=== PATIENT | male | born 1965 | race Caucasian/White ===

== ENCOUNTER 2017-05-07 11:18 | Observation (INO) | payer BC ==
[~2017-05-07] VITALS: Ht 172.7 cm; Wt 82.4 kg
[2017-05-07] VITALS (8 sets, daily range): BP systolic 133–148; BP diastolic 78–91; PULSE 56–71; TEMP 36.5–37.2; O2SAT 95–99; Ht 172.7 cm; Wt 82.4 kg
[~2017-05-07 11:18] MED LIST: CYAN500T PO
[2017-05-07] MEDS ORDERED: NITROGLYCERIN OINT 2% 1GM PACKET EXT STA (11:34)
--- NOTE | 2017-05-07 11:36 | EMERGENCY ROOM VISIT NOTE ---
History Report prepared by Bob: Mariia Cao Under the Supervision of: Dr. Trenton Hill M.D. First contact with patient: 11:26 Chief Complaint: CARDIAC ASSESSMENT Stated Complaint: CHEST PRESSURE, BURNING History of Present Illness The patient is a 52 year old male who presents to the Emergency Room with complaints of persistent chest pain that began yesterday. No pain radiation, no nausea, no sweating. He currently rates his discomfort as a 2/10 in severity. The patient states that in 2008 he had a cardiac stent placed. He states that he had the stent placed due to chest pressure and shortness of breath. The patient states that yesterday he began becoming short of breath and reported burning in his chest. He states that he has nitroglycerin at home , but did not use it. The patient states that his last stress test was two years ago. He states that he takes 81 mg of aspirin daily. The patient reports a history of GERD. Source of History: patient Onset: yesterday Position: chest Symptom Intensity: 2/10 Quality: burning Timing: other (persistent) Associated Symptoms: + SOB Review of Systems See HPI for pertinent positives & negatives. A total of 10 systems reviewed and were otherwise negative. Past Medical & Surgical Medical Problems: (1) Bicuspid aortic valve (2) Coronary artery disease (3) Depression (4) Gastroesophageal reflux disease (5) Migraine with aura Surgical Problems: (1) H/O heart artery stent (2) H/O vasectomy (3) S/P coronary artery stent placement (4) S/P inguinal hernia repair (5) S/P tonsillectomy Family History Cardiac arrhythmia Social History Smoking Status: Former Smoker Marital Status: Housing Status: lives with significant other Occupation Status: employed Current/Historical Medications Scheduled Aspirin (Aspirin Ec), 81 MG PO HS Clopidogrel (Plavix), 75 MG PO HS Multivitamin (Multivitamin), 1 TAB PO DAILY [place]-3 Fatty Acids (Fish Oil), 2 CAP PO QPM Pantoprazole (Protonix), 40 MG PO HS Sertraline (Zoloft), 50 MG PO HS Simvastatin (Zocor), 40 MG PO HS Scheduled PRN Nitroglycerin (Nitrostat), 0.4 MG UT UD PRN for Chest Pain Allergies Coded Allergies: Penicillins (Verified Allergy, Intermediate, RASH, 05/07/17) AN Physical Exam Vital Signs Date Time Temp Pulse Resp B/P (MAP) Pulse Ox O2 Delivery O2 Flow Rate FiO2 05/07/17 12:25 64 20 154/99 99 Room Air 05/07/17 12:03 63 05/07/17 11:30 98 Room Air 05/07/17 11:30 98 Room Air 05/07/17 11:21 37.0 79 18 165/103 98 Room Air Physical Exam GENERAL: Patient is in no acute distress. HEENT: No acute trauma, normocephalic atraumatic, mucous membranes moist, no nasal congestion, no scleral icterus. NECK: No stridor, no adenopathy, no meningismus, trachea is midline. LUNGS: Clear to auscultation bilaterally, no wheeze, no rhonchi, breath sounds equal. HEART: Subtle systolic murmur, regular rate and rhythm. ABDOMEN: Soft, nontender, bowel sounds positive, no hernias, no peritonitis. EXTREMITIES: No cyanosis or edema, full range of motion of all the joints without pain or difficulty, no signs for acute trauma. NEUROLOGIC: Oriented x 3, no acute motor or sensory deficits, no focal weakness. SKIN: No rash, no jaundice, no diaphoresis. Medical Decision & Procedures ER Provider Diagnostic Interpretation: X-ray results as stated below per interpretation by me and the radiologist: SINGLE VIEW CHEST CLINICAL HISTORY: Atypical chest pain. FINDINGS: An AP, portable, upright chest radiograph is compared to study dated 05/05/2013. The examination is degraded by portable technique and patient rotation. The heart is top normal for projection. There is mild atherosclerotic calcification of the thoracic aorta. The pulmonary vasculature is noncongested. The lungs and pleural spaces are clear. No pneumothorax is seen. The bony thorax is grossly intact. IMPRESSION: No acute cardiopulmonary abnormality. Electronically signed by: Trenton Sierra M.D. 05/07/2017 11:51 AM Dictated Date/Time: 05/07/2017 11:51 AM Laboratory Results 05/07/17 11:35 05/07/17 11:35 Test 05/07/17 11:35 Red Blood Count 4.35 M/uL (4.7-6.1) Mean Corpuscular Volume 91.0 fL (80-100) Mean Corpuscular Hemoglobin 31.3 pg (25-34) Mean Corpuscular Hemoglobin Concent 34.3 g/dl (32-36) RDW Standard Deviation 44.0 fL (36.4-46.3) RDW Coefficient of Variation 13.2 % (11.5-14.5) Mean Platelet Volume 9.7 fL (7.4-10.4) Prothrombin Time 10.0 SECONDS (9.0-12.0) Prothromb Time International Ratio 0.9 (0.9-1.1) Activated Partial Thromboplast Time 26.6 SECONDS (21.0-31.0) Partial Thromboplastin Ratio 1.0 Anion Gap 8.0 mmol/L (3-11) Est Creatinine Clear Calc Drug Dose 101.6 ml/min Estimated GFR () 112.9 Estimated GFR (Non- 97.4 BUN/Creatinine Ratio 12.9 (10-20) Calcium Level 8.9 mg/dl (8.5-10.1) Total Bilirubin 0.4 mg/dl (0.2-1) Aspartate Amino Transf (AST/SGOT) 13 U/L (15-37) Alanine Aminotransferase (ALT/SGPT) 25 U/L (12-78) Alkaline Phosphatase 63 U/L (45-117) Total Creatine Kinase 98 U/L (39-308) Creatine Kinase MB 0.6 ng/ml (0.5-3.6) Creatine Kinase MB Ratio 0.6 (0-3.0) Troponin I < 0.015 ng/ml (0-0.045) Total Protein 7.4 gm/dl (6.4-8.2) Albumin 4.2 gm/dl (3.4-5.0) Globulin 3.2 gm/dl (2.5-4.0) Albumin/Globulin Ratio 1.3 (0.9-2) Lipase 277 U/L (73-393) Laboratory results reviewed by me. Medications Administered Medications (Trade) Dose Ordered Sig/Diaz Route Start Time Stop Time Status Last Admin Dose Admin Nitroglycerin (Nitroglycerin 2% Oint) 1 inch NOW STAT EXT 05/07/17 11:34 05/07/17 13:20 DC 05/07/17 11:51 1 INCH ECG Indication: chest pain Rate (beats per minute): 71 Rhythm: normal sinus Findings: no acute ischemic change, no ectopy ED Course 1127: The patient was evaluated in room B3B. A complete history and physical exam was performed. 1134: Ordered Nitroglycerin 1 inch EXT. 1223: I reevaluated the patient and he has had complete resolution of his symptoms with the nitroglycerin. I discussed the exam findings with him and I discussed the treatment plan. He verbalized complete understanding and agreement. Cardiology will be consulted. 1225: I discussed the patients case with Jeff Allen. He states that the patient should be evaluated for further treatment. 1235: I discussed the patient's case with Dave Beltran PA-C. She is going to evaluate the patient for further treatment. 1237: I reevaluated the patient and he is resting, I updated the patient the treatment plan. He verbalized complete understanding and agreement. He will be evaluated for further treatment. Medical Decision The patient is a 52 year old male who presents to the ED with complaints of chest pain. Differential diagnoses considered include MS, CHF, pneumonia, reflux, angina, anemia. There is no leukocytosis or concerning anemia. No significant electrolyte abnormality, kidney failure, hepatitis or pancreatitis. There is no coagulopathy. EKG shows a normal sinus rhythm, no acute ischemia. Cardiac enzyme testing times one is not consistent with acute cardiac injury. Chest x- ray shows no mediastinal widening, pneumonia or pneumothorax. The patient presents with precordial chest pain. He has a cardiac history with previous coronary stenting. He received Nitropaste while in the ER, he is now pain-free. The patient does take daily aspirin so no additional aspirin was given. Given his presentation, further cardiac workup is warranted. I am concerned he may be suffering from angina. I spoke with cardiology, I talked with the patient and case management. The on-call hospitalist was consulted. Medication Reconcilliation Current Medication List: was personally reviewed by me Consults Time Called: 1223 Consulting Physician: Dave Allen Cardiology Returned Call: 1225 I discussed the patients case with Jeff Allen. He states that the patient should be evaluated for further treatment. Additional Consults: Time Called: 1229 Consulted Physician: Dave Beltran PA-C Returned Call: 1230 Additional Comments: I discussed the patient's case with Dave Beltran PA-C. She is going to evaluate the patient for further treatment. Impression Primary Impression: Precordial chest pain Scribe Attestation The scribe's documentation has been prepared under my direction and personally reviewed by me in its entirety. I confirm that the note above accurately reflects all work, treatment, procedures, and medical decision making performed by me. Departure Information Dispostion Being Evaluated By Hospitalist Referrals Shant Ojeda M.D. (PCP)
[2017-05-07 11:53] LABS: HEMATOCRIT 39.6 % (42-52); MEAN CORPUSCULAR HEMOGLOBIN 31.3 pg (25-34); MEAN CORPUSCULAR HGB CONC 34.3 g/dl (32-36); MEAN PLATELET VOLUME 9.7 fL (7.4-10.4); PLATELET COUNT 241 K/uL (130-400); RED BLOOD COUNT 4.35 M/uL (4.7-6.1); WHITE BLOOD COUNT 5.26 K/uL (4.8-10.8)
--- NOTE | 2017-05-07 11:53 | DIAGNOSTIC IMAGING REPORT ---
SINGLE VIEW CHEST CLINICAL HISTORY: Atypical chest pain. FINDINGS: An AP, portable, upright chest radiograph is compared to study dated 05/05/2013. The examination is degraded by portable technique and patient rotation. The heart is top normal for projection. There is mild atherosclerotic calcification of the thoracic aorta. The pulmonary vasculature is noncongested. The lungs and pleural spaces are clear. No pneumothorax is seen. The bony thorax is grossly intact. IMPRESSION: No acute cardiopulmonary abnormality. Electronically signed by: Trenton Sierra M.D. 05/07/2017 11:51 AM Dictated Date/Time: 05/07/2017 11:51 AM
[2017-05-07 11:58] LABS: INR 0.9 (0.9-1.1)
[2017-05-07 12:10] LABS: ALT/SGPT 25 U/L (12-78); AST/SGOT 13 U/L (15-37); BLOOD UREA NITROGEN 11 mg/dl (7-18); BUN/CREATININE RATIO 12.9 (10-20); CALCIUM 8.9 mg/dl (8.5-10.1); CARBON DIOXIDE 26 mmol/L (21-32); CHLORIDE 109 mmol/L (98-107); CREATININE 0.88 mg/dl (0.60-1.40); GLUCOSE 97 mg/dl (70-99); SODIUM 143 mmol/L (136-145)
[2017-05-07 12:15] LABS: ALB/GLOB RATIO 1.3 (0.9-2); ALKALINE PHOSPHATASE 63 U/L (45-117); CKMB/CK RATIO 0.6 (0-3.0)
[2017-05-07] MEDS ORDERED: ASPIRIN 81 MG CHEW PO STA (12:38)
[2017-05-07] MEDS ORDERED: ASPIRIN 324 MG CHEW ONE (12:44)
[2017-05-07] MEDS ORDERED: NITROGLYCERIN 0.4 MG SL PER TAB CHARGE SL PRN (13:00)
[2017-05-07] MEDS ORDERED: ACETAMINOPHEN 325 MG TAB PO PRN (13:00)
[2017-05-07] MEDS ORDERED: ONDANSETRON INJ 2 MG/ML 2 ML VIAL IV PRN (13:00)
[2017-05-07] MEDS ORDERED: NITROGLYCERIN 0.4 MG SL PER TAB CHARGE UT PRN (13:30)
[2017-05-07] MEDS ORDERED: ALUMINUM/MAGNESIUM/SIMETH (MAALOX MAX) 30 ML UDC PO PRN (13:30)
--- NOTE | 2017-05-07 14:05 | History and Physical ---
History & Physical Date & Time of Service: May 07, 2017 at 13:27 Chief Complaint: Chest Pressure, Burning Primary Care Physician: Shant Ojeda M.D. History of Present Illness Source: patient, clinic records, hospital records This is a 52 y/o male with PMH of CAD s/p VICTOR HUGO to LAD in 04/2009, congenital bicuspid aortic valve, and other problems listed below who presents to the ED with chest pain. Patient states yesterday after returning from camp, while unloading small pieces of wood from his truck, developed SOB, substernal burning chest pain, burning and globus sensation in throat, mild nausea. Patient laid down and symptoms resolved after 30 minutes. This morning he awoke at 6:30 am with the same symptoms which persisted for several hours and resolved when nitro paste was placed in ER (approximately 11:50 am). He did not take SL nitro or try any antacids. He is currently chest pain free. Denies worsening of chest pain with exertion, position, or eating. He reports chronic intermittent LAMA when when cutting grass or walking down stairs. He does not regularly exercise. He reports longstanding acid reflux for which he takes pantoprazole. Weight is decreased 4-5 lb in past 1 year. Pt denies diaphoresis, dizziness, syncope, palpitations, cough, dyspnea at rest, dysphagia, odynophagia , abdominal pain, vomiting, diarrhea, hematochezia, melena, dysuria, frequency, urgency, LE edema, calf pain. Repeat cath 06/11/2009 showed widely patent LAD stent, otherwise no significant disease. Stress echo 04/2014 was negative for inducible ischemia. Past Medical/Surgical History Medical Problems: (1) Bicuspid aortic valve Status: Chronic (2) Coronary artery disease Status: Chronic (3) Depression Status: Chronic (4) Gastroesophageal reflux disease Status: Chronic (5) Migraine with aura Status: Chronic Surgical Problems: (1) H/O heart artery stent Status: Resolved (2) H/O vasectomy Status: Chronic (3) S/P coronary artery stent placement Status: Chronic (4) S/P inguinal hernia repair Status: Chronic (5) S/P tonsillectomy Status: Chronic Family History Cardiac arrhythmia FATHER Social History Smoking Status: Never Smoker Alcohol Use: socially (drinks beer on the weekends, up to a 6-pack over several hours) Marital Status: Housing status: lives with significant other Occupational Status: employed (working 2 jobs) Immunizations History of Influenza Vaccine: Unknown Influenza Vaccine Date: Apr 26, 2009 History of Tetanus Vaccine?: Unknown Tetanus Immunization Date: May 11, 2000 History of Pneumococcal: Unknown History of Hepatitis B Vaccine: Unknown Hepatitis Immunization Date: Oct 09, 1998 Multi-Drug Resistant Organisms History of MDRO: No Allergies Coded Allergies: Penicillins (Verified Allergy, Intermediate, RASH, 05/07/17) AN INFANT Home Medications Scheduled Aspirin (Aspirin Ec), 81 MG PO HS Clopidogrel (Plavix), 75 MG PO HS Multivitamin (Multivitamin), 1 TAB PO DAILY [place]-3 Fatty Acids (Fish Oil), 2 CAP PO QPM Pantoprazole (Protonix), 40 MG PO HS Sertraline (Zoloft), 50 MG PO HS Simvastatin (Zocor), 40 MG PO HS Scheduled PRN Nitroglycerin (Nitrostat), 0.4 MG UT UD PRN for Chest Pain Review of Systems Ten systems reviewed and negative except as noted in HPI. Physical Exam Vital Signs Date Time Temp Pulse Resp B/P (MAP) Pulse Ox O2 Delivery O2 Flow Rate FiO2 05/07/17 12:25 64 20 154/99 99 Room Air 05/07/17 12:03 63 05/07/17 11:30 98 Room Air 05/07/17 11:30 98 Room Air 05/07/17 11:21 37.0 79 18 165/103 98 Room Air General Appearance: WD/WN, no apparent distress, + pertinent finding (pleasant alert 52 y/o male, lying in bed, no distress) Head: normocephalic, atraumatic Eyes: normal inspection, PERRL, sclerae normal ENT: hearing grossly normal, pharynx normal Neck: supple, no JVD, trachea midline Respiratory/Chest: chest non-tender, lungs clear, normal breath sounds, no respiratory distress, no accessory muscle use Cardiovascular: regular rate, rhythm, no murmur, normal peripheral pulses Abdomen/GI: normal bowel sounds, non tender, soft Extremities/Musculoskelatal: no calf tenderness, no pedal edema Neurologic/Psych: alert, normal mood/affect, oriented x 3 Skin: normal color, warm/dry, no rash (no rash on the chest) Diagnostics Laboratory Results Results Past 24 Hours Test 05/07/17 11:35 Range/Units White Blood Count 5.26 4.8-10.8 K/uL Red Blood Count 4.35 4.7-6.1 M/uL Hemoglobin 13.6 14.0-18.0 g/dL Hematocrit 39.6 42-52 % Mean Corpuscular Volume 91.0 80-100 fL Mean Corpuscular Hemoglobin 31.3 25-34 pg Mean Corpuscular Hemoglobin Concent 34.3 32-36 g/dl RDW Standard Deviation 44.0 36.4-46.3 fL RDW Coefficient of Variation 13.2 11.5-14.5 % Platelet Count 241 130-400 K/uL Mean Platelet Volume 9.7 7.4-10.4 fL Prothrombin Time 10.0 9.0-12.0 SECONDS Prothromb Time International Ratio 0.9 0.9-1.1 Activated Partial Thromboplast Time 26.6 21.0-31.0 SECONDS Partial Thromboplastin Ratio 1.0 Sodium Level 143 136-145 mmol/L Potassium Level 4.0 3.5-5.1 mmol/L Chloride Level 109 98-107 mmol/L Carbon Dioxide Level 26 21-32 mmol/L Anion Gap 8.0 3-11 mmol/L Blood Urea Nitrogen 11 7-18 mg/dl Creatinine 0.88 0.60-1.40 mg/dl Est Creatinine Clear Calc Drug Dose 101.6 ml/min Estimated GFR () 112.9 Estimated GFR (Non- 97.4 BUN/Creatinine Ratio 12.9 10-20 Random Glucose 97 70-99 mg/dl Calcium Level 8.9 8.5-10.1 mg/dl Total Bilirubin 0.4 0.2-1 mg/dl Aspartate Amino Transf (AST/SGOT) 13 15-37 U/L Alanine Aminotransferase (ALT/SGPT) 25 12-78 U/L Alkaline Phosphatase 63 45-117 U/L Total Creatine Kinase 98 39-308 U/L Creatine Kinase MB 0.6 0.5-3.6 ng/ml Creatine Kinase MB Ratio 0.6 0-3.0 Troponin I < 0.015 0-0.045 ng/ml Total Protein 7.4 6.4-8.2 gm/dl Albumin 4.2 3.4-5.0 gm/dl Globulin 3.2 2.5-4.0 gm/dl Albumin/Globulin Ratio 1.3 0.9-2 Lipase 277 73-393 U/L Diagnostic Radiology SINGLE VIEW CHEST CLINICAL HISTORY: Atypical chest pain. FINDINGS: An AP, portable, upright chest radiograph is compared to study dated 05/05/2013. The examination is degraded by portable technique and patient rotation. The heart is top normal for projection. There is mild atherosclerotic calcification of the thoracic aorta. The pulmonary vasculature is noncongested. The lungs and pleural spaces are clear. No pneumothorax is seen. The bony thorax is grossly intact. IMPRESSION: No acute cardiopulmonary abnormality. EKG NSR, 71 bpm, no ST abnormality, no significant change from prior EKG in April 2013, as interpreted by me Impression Assessment and Plan CHEST PAIN R/o ACS; known history of CAD s/p VICTOR HUGO to LAD in 04/2009; ddx also includes GI etiology- continue PPI and add PRN Maalox Initial troponin negative, EKG- no ischemic findings, CXR- unremarkable Stress echo 04/2014 negative for inducible ischemia Last TTE 04/16/17- LV EF 60%, partial fusion of right and non-coronary cusps, no aortic valve stenosis or regurgitation Trend serial cardiac enzymes Repeat EKG in am 324 mg ASA given, continue daily aspirin, Plavix, statin Hold nitro paste, add SL nitro PRN Consult cardiology- Dr. Blank aware GERD Continue PPI and add PRN Maalox DEPRESSION Continue sertraline DVT PROPHYLAXIS Heparin SQ Patient seen in collaboration with Dr. Dougherty. Pt will be followed by Dr. Phillips tomorrow. VTE Prophylaxis VTE Risk Assessment Done? Y/N: Yes Risk Level: Moderate Given or contraindicated: Unfractionated heparin SQ Note ATTENDING ADDENDUM Record reviewed. Patient interviewed and examined in ED. Care coordinated with Rachana August PA-C. Please refer to her documentation for patient's history. Briefly, 52 YO male with history of ischemic heart disease, s/p PCI LAD with drug-eluting stent in 2008. Experienced midsternal chest pressure / burning and dyspnea while unloading truck yesterday. Persistent symptoms this morning. Called office and referred to ED. Did not take NTG at home. CP resolved after receiving NTP in ED. EXAM: General- no distress VS- as noted HEENT- anicteric Neck- no JVD Lungs- clear Heart- RRR, no murmur, gallop, or rub appreciated Abdomen- + BS, soft, nontender Extremities- no pretibial edema or calf tenderness Neuro- alert DATA: Troponin < 0.015. Other lab studies as noted. EKG performed at 11:29 reviewed and demonstrated NSR at 70 / minute, no acute ST or T-wave abnormalities. CXR- neg. ASSESSMENT AND PLAN: Chest pain + SOB with exertion. Known CAD, s/p PCI LAD with VICTOR HUGO. Pain-free in ED after receiving topical nitro. Initial troponin and EKG unremarkable. Check serial cardiac markers. Consult Cardiology. Please refer to JEANNA August's documentation for discussion of other issues. Murphy Dougherty MD .
[2017-05-07] MEDS ORDERED: SIMV40TA2 PO (14:44)
[2017-05-07] MEDS ORDERED: MULT-506 PO (14:44)
[2017-05-07] MEDS ORDERED: NTRGSL/4 UT (14:44)
[2017-05-07] MEDS ORDERED: PANT40TA PO (14:44)
[2017-05-07] MEDS ORDERED: ASPI81TA28 PO (14:44)
[2017-05-07] MEDS ORDERED: OMEGCAP2 PO (14:44)
[2017-05-07] MEDS ORDERED: SERT50TA PO (14:44)
[2017-05-07] MEDS ORDERED: CLOP1TAB15 PO (14:44)
[2017-05-07] MEDS ORDERED: IV FLUIDS COMPLETED PRN (15:00)
[2017-05-07] MEDS: HEPARIN SOD 5000 UNIT/0.5 ML CARP SQ SCH ×2 (15:42→21:05)
[2017-05-07] MEDS ORDERED: INFLUENZA VIRUS QUAD VACCINE 0.5 ML SYR IM. ONE (16:00)
[2017-05-07] MEDS ORDERED: INFLUENZA ADMINISTRATION CHARGE ONE (16:00)
--- NOTE | 2017-05-07 16:28 | CARDIOLOGY CONSULTATION ---
DATE OF CONSULTATION: 05/07/2017 CONSULTATION FOR: [facility] Service. REASON FOR CONSULTATION: Chest pain. HISTORY OF PRESENT ILLNESS: The patient is a 52-year-old male who in 2008, presented with acute coronary syndrome, received a drug-eluting stent within the LAD. He also has a history of bicuspid aortic valve without significant aortic stenosis or regurgitation. The patient has been doing well over the past several years. He actually just had an echocardiogram in March and that showed no significant changes. He also had a visit with Shant Wheeler at which time he was doing well. Yesterday, the patient came home from [facility]. He was unloading his truck and he developed some retrosternal chest discomfort or dullness that lasted for several hours and he decided to present to the Emergency Department. After arrival there, he was started on nitro paste. That seemed to dissipate his discomfort. He is currently pain free and has no other complaints. ALLERGIES: PENICILLIN. PAST MEDICAL HISTORY: As outlined above, the patient has known coronary artery disease with a prior history of a drug-eluting stent placed in the LAD in April 2009. He also has a history of bicuspid aortic valve without significant aortic stenosis or aortic insufficiency. He has no prior history of diabetes, hypertension or hyperlipidemia. He has a history of gastroesophageal reflux. SOCIAL HISTORY: He is a never smoker. He drinks socially. He is and lives with his . FAMILY MEDICAL HISTORY: Significant for father and cardiac arrhythmias. REVIEW OF SYSTEMS: A 10-point review of systems is negative except for the history of chief complaint. PHYSICAL EXAMINATION: GENERAL: He is alert and oriented. VITAL SIGNS: Blood pressure is 150/90. Pulse is regular at 60 beats per minute. He is afebrile. HEENT: He is normocephalic. Pupils are equal and reactive to light. Extraocular muscles are intact bilaterally. NECK: The neck veins are flat. Carotids have good upstrokes bilaterally without bruits. Thyroid is nonpalpable. RESPIRATORY: Breath sounds equal bilaterally and clear to auscultation. CARDIOVASCULAR: Heart has a regular rhythm. Normal S1, S2. No S3, S4. No cardiac rubs or murmurs. GASTROINTESTINAL: Abdomen is soft, nontender without organomegaly. EXTREMITIES: Free of edema, digit clubbing, or cyanosis. NEUROLOGIC: Grossly intact. SKIN: Warm to touch. LYMPH NODES: Negative to palpation. LABORATORY DATA: EKG reveals a sinus rhythm with no acute changes. First set of cardiac markers are negative. IMPRESSION: 1. Chest pain. 2. Known coronary artery disease with prior drug-eluting stent left anterior descending. 3. Gastroesophageal reflux disease. RECOMMENDATIONS: The patient will be admitted to an observation protocol. If his second set of cardiac markers is negative, he will undergo an exercise stress echocardiogram.
[2017-05-07 18:07] LABS: CKMB/CK RATIO 0.9 (0-3.0)
[2017-05-07] MEDS ORDERED: SIMVASTATIN 40 MG TAB PO SCH (21:00)
[2017-05-07] MEDS ORDERED: SERTRALINE HCL 50 MG TAB PO SCH (21:00)
[2017-05-07] MEDS ORDERED: PANTOprazole SOD 40 MG TAB PO SCH (21:00)
[2017-05-07] MEDS ORDERED: CLOPIDOGREL BISULFATE 75 MG TAB PO SCH (21:00)
[2017-05-07] MEDS ORDERED: OMEGA-3 (PURIFIED FISH OIL) 1 GM CAP PO SCH (21:00)
[2017-05-08 04:09] VITALS: BP 133/79; PULSE 59; TEMP 36.5; O2SAT 96
[2017-05-08] MEDS: HEPARIN SOD 5000 UNIT/0.5 ML CARP SQ SCH (05:48)
[2017-05-08 06:18] LABS: BUN/CREATININE RATIO 12.1 (10-20); CALCIUM 8.6 mg/dl (8.5-10.1); CREATININE 0.92 mg/dl (0.60-1.40); MAGNESIUM 2.2 mg/dl (1.8-2.4); POTASSIUM 3.6 mmol/L (3.5-5.1)
[2017-05-08 06:21] LABS: CHOLESTEROL/HDL RATIO 1.9
[2017-05-08 07:22] VITALS: BP 157/83; PULSE 63; TEMP 36.6; O2SAT 98
[2017-05-08 08:00] VITALS: O2SAT 98
[2017-05-08] MEDS ORDERED: MULTIVITAMIN TAB PO SCH (09:00)
[2017-05-08 09:05] VITALS: BP 148/89; PULSE 61; TEMP 36.6; O2SAT 98
[2017-05-08 11:32] VITALS: BP 148/89; PULSE 61; TEMP 36.6; O2SAT 98
[2017-05-08 11:52] VITALS: O2SAT 98
--- NOTE | 2017-05-08 13:02 | Discharge Instructions ---
Discharge Instructions Date of Service May 08, 2017. Admission Reason for Admission: Precordial Chest Pain Discharge Discharge Diagnosis / Problem: non cardiac chest pain, gastric reflux Discharge Goals Goal(s): Decrease discomfort, Improve function, Improve disease control Activity Recommendations Activity Limitations: per Instructions/Follow-up section Lifting Limitations: none Exercise/Sports Limitations: none Shower/Bathe: no limitations . Instructions / Follow-Up Instructions / Follow-Up Patient was seen and evaluated for chest pain. Patient had negative stress test Diagnosis of Non Cardiac Chest pain (Atypical Chest Pain) likely secondary to Gastric Reflux Patient is to be discharged to home Follow up with primary care doctor Rusty on Sunday05/14/17 at 3PM. Primary care doctor can follow up with Gastric Reflux symptoms or provider referral to Gastroenterology clinic if reflux symptoms is not controlled on Protonics or other medications Follow up with Cardiology Dr. Lopez at [facility] on Sunday at 1:45 PM. Patient can obtain sleep study referral from primary care doctor to concurrently evaluate if patient has sleep apnea Please call [phone] for further appointment re-scheduling Current Hospital Diet Patient's current hospital diet: AHA Diet (Heart Healthy) Discharge Diet Recommended Diet: AHA Diet (Heart Healthy) Procedures Procedures Performed: stress test Pending Studies Studies pending at discharge: no Laboratory Results 05/07/17 11:35 05/08/17 05:14 Test 05/07/17 11:35 05/07/17 23:09 05/08/17 05:14 Red Blood Count 4.35 M/uL (4.7-6.1) Mean Corpuscular Volume 91.0 fL (80-100) Mean Corpuscular Hemoglobin 31.3 pg (25-34) Mean Corpuscular Hemoglobin Concent 34.3 g/dl (32-36) RDW Standard Deviation 44.0 fL (36.4-46.3) RDW Coefficient of Variation 13.2 % (11.5-14.5) Mean Platelet Volume 9.7 fL (7.4-10.4) Prothrombin Time 10.0 SECONDS (9.0-12.0) Prothromb Time International Ratio 0.9 (0.9-1.1) Activated Partial Thromboplast Time 26.6 SECONDS (21.0-31.0) Partial Thromboplastin Ratio 1.0 Total Bilirubin 0.4 mg/dl (0.2-1) Aspartate Amino Transf (AST/SGOT) 13 U/L (15-37) Alanine Aminotransferase (ALT/SGPT) 25 U/L (12-78) Alkaline Phosphatase 63 U/L (45-117) Total Protein 7.4 gm/dl (6.4-8.2) Albumin 4.2 gm/dl (3.4-5.0) Globulin 3.2 gm/dl (2.5-4.0) Albumin/Globulin Ratio 1.3 (0.9-2) Lipase 277 U/L (73-393) Total Creatine Kinase 72 U/L (39-308) Creatine Kinase MB 0.7 ng/ml (0.5-3.6) Creatine Kinase MB Ratio 1.0 (0-3.0) Troponin I < 0.015 ng/ml (0-0.045) Anion Gap 8.0 mmol/L (3-11) Est Creatinine Clear Calc Drug Dose 97.2 ml/min Estimated GFR () 108.9 Estimated GFR (Non- 94.0 BUN/Creatinine Ratio 12.1 (10-20) Calcium Level 8.6 mg/dl (8.5-10.1) Magnesium Level 2.2 mg/dl (1.8-2.4) Triglycerides Level 155 mg/dl (0-150) Cholesterol Level 118 mg/dl (0-200) HDL Cholesterol 61 mg/dl LDL Cholesterol, Calculated 26 mg/dl VLDL Cholesterol, Calculated 31 mg/dl Cholesterol/HDL Ratio 1.9 Lipid Panel Test 05/08/17 05:14 Range/Units Triglycerides Level 155 H 0-150 mg/dl Cholesterol Level 118 0-200 mg/dl HDL Cholesterol 61 mg/dl Cholesterol/HDL Ratio 1.9 LDL Cholesterol, Calculated 26 mg/dl Medical Emergencies . Who to Call and When: Medical Emergencies: If at any time you feel your situation is an emergency, please call 911 immediately. . Non-Emergent Contact Non-Emergency issues call your: Primary Care Provider . . "Provider Documentation" section prepared by Kaleb Orellana. . VTE Core Measure Inpt VTE Proph given/why not?: Unfractionated heparin SQ
--- NOTE | 2017-05-08 13:03 | Discharge Summary ---
Discharge Summary Date of Service May 08, 2017. Discharge Summary Admission Date: May 07, 2017 at 12:42 Discharge Date: May 08, 2017 Discharge Disposition: Home Principal Diagnosis: Diagnosis of Non Cardiac Chest pain (Atypical Chest Pain) likely secondary to Gastric Reflux Medication Reconciliation Continued Medications: Aspirin (Aspirin Ec) 81 Mg Tab 81 MG PO HS Clopidogrel (Plavix) 75 Mg Tab 75 MG PO HS, TAB Multivitamin (Multivitamin) Tab 1 TAB PO DAILY, TAB Nitroglycerin (Nitrostat) 0.4 Mg Tab 0.4 MG UT UD PRN for Chest Pain, BTL 1 tab every 5 minutes as needed for chest pain. Up to 3 doses in 15 minutes. Marcy-3 Fatty Acids (Fish Oil) 1 Cap Cap 2 CAP PO QPM Pantoprazole (Protonix) 40 Mg Tab 40 MG PO HS, TAB Sertraline (Zoloft) 50 Mg Tab 50 MG PO HS, TAB Simvastatin (Zocor) 40 Mg Tab 40 MG PO HS, TAB Admission Information HPI (per Admitting provider): This is a 52 y/o male with PMH of CAD s/p VICTOR HUGO to LAD in 04/2009, congenital bicuspid aortic valve, and other problems listed below who presents to the ED with chest pain. Patient states yesterday after returning from [place], while unloading small pieces of wood from his truck, developed SOB, substernal burning chest pain, burning and globus sensation in throat, mild nausea. Patient laid down and symptoms resolved after 30 minutes. This morning he awoke at 6:30 am with the same symptoms which persisted for several hours and resolved when nitro paste was placed in ER (approximately 11:50 am). He did not take SL nitro or try any antacids. He is currently chest pain free. Denies worsening of chest pain with exertion, position, or eating. He reports chronic intermittent LAMA when when cutting grass or walking down stairs. He does not regularly exercise. He reports longstanding acid reflux for which he takes pantoprazole. Weight is decreased 4-5 lb in past 1 year. Pt denies diaphoresis, dizziness, syncope, palpitations, cough, dyspnea at rest, dysphagia, odynophagia , abdominal pain, vomiting, diarrhea, hematochezia, melena, dysuria, frequency, urgency, LE edema, calf pain. Repeat cath 06/11/2009 showed widely patent LAD stent, otherwise no significant disease. Stress echo 04/2014 was negative for inducible ischemia. Physical Exam (per Admitting): General Appearance: WD/WN, no apparent distress, + pertinent finding ( pleasant alert 52 y/o male, lying in bed, no distress) Head: normocephalic, atraumatic Eyes: normal inspection, PERRL, sclerae normal ENT: hearing grossly normal, pharynx normal Neck: supple, no JVD, trachea midline Respiratory/Chest: chest non-tender, lungs clear, normal breath sounds, no respiratory distress, no accessory muscle use Cardiovascular: regular rate, rhythm, no murmur, normal peripheral pulses Abdomen/GI: normal bowel sounds, non tender, soft Extremities/Musculoskelatal: no calf tenderness, no pedal edema Neurologic/Psych: alert, normal mood/affect, oriented x 3 Skin: normal color, warm/dry, no rash (no rash on the chest) Hospital Course Patient was seen and evaluated for chest pain. Patient had negative stress test Diagnosis of Non Cardiac Chest pain (Atypical Chest Pain) likely secondary to Gastric Reflux Patient is to be discharged to home Follow up with primary care doctor Rusty on Sunday05/14/17 at 3PM. Primary care doctor can follow up with Gastric Reflux symptoms or provider referral to Gastroenterology clinic if reflux symptoms is not controlled on Protonics or other medications Follow up with Cardiology Dr. Lopez at [facility] on Sunday at 1:45 PM. Patient can obtain sleep study referral from primary care doctor to concurrently evaluate if patient has sleep apnea Please call [phone] for further appointment re-scheduling Total time spent on discharge = This includes examination of the patient, discharge planning, medication reconciliation, and communication with other providers. Discharge Instructions Patient was seen and evaluated for chest pain. Patient had negative stress test Diagnosis of Non Cardiac Chest pain (Atypical Chest Pain) likely secondary to Gastric Reflux Patient is to be discharged to home Follow up with primary care doctor Rusty on Sunday05/14/17 at 3PM. Primary care doctor can follow up with Gastric Reflux symptoms or provider referral to Gastroenterology clinic if reflux symptoms is not controlled on Protonics or other medications Follow up with Cardiology Dr. Lopez at [facility] on Sunday at 1:45 PM. Patient can obtain sleep study referral from primary care doctor to concurrently evaluate if patient has sleep apnea Please call [phone] for further appointment re-scheduling
--- NOTE | 2017-05-08 13:06 | EXERCISE STRESS ECHO ---
*NOTICE TO RECEIVING [employer] AGENCY This information is strictly Confidential and protected under [place] law. [place] law prohibits you from making any further disclosure of this information unless further disclosure is expressly permitted by the written consent of the person to whom it pertains or is authorized by law. A general authorization for the release of medical or other information is not sufficient for this purpose. Hospital accepts no responsibility if the information is made available to any other person, INCLUDING THE PATIENT. Interpretation Summary * Name: ANJU HOLLINGSWORTH Study Date: 05/08/2017 08:49 AM BP: 143/84 mmHg * Patient Location: [facility]\S\N283\S\2 HR: 59 * : 1965 (M/d/yyyy) Gender: Male Height: 68 in * Age: 52 yrs Ethnicity: CA Weight: 186 lb * Ordering Physician: Jeremiah Blnak * Referring Physician: Self, Referred * Performed By: Porsche Lovett RCS * * Reason For Study: CHEST PAIN * BSA: 2.0 m2 * STRESS STUDY: Normal exercise stress echocardiogram. No echocardiographic or ECG evidence of myocardial ischemia having achieved heart rate adequate for diagnostic purposes. * -- Conclusions -- * STRESS STUDY: Normal exercise stress echocardiogram. No echocardiographic or ECG evidence of myocardial ischemia having achieved heart rate adequate for diagnostic purposes. Procedure Details * ECHOEX, CPT #21460 Stress Parameters * Baseline ECG was essentially normal. No symptoms were noted. * The stress ECG response was normal * Stress ECG: No ST changes. No arrhythmias. * The stress portion of this study was personally supervised by the undersigned interpreting physician. * Rest heart rate was '59' BPM. * Rest blood pressure was '143/84' * Maximum heart rate achieved was 162 bpm. * Maximum heart rate was 97 % of maximum age-predicted heart rate. * Maximum blood pressure was '205/92' * Total exercise time was '12:01' * Maximum exercise MET level achieved was '13.70' METS * Maximum treadmill speed was '4.20' miles per hour. * Maximum treadmill elevation was '16.00'% grade.
[2017-05-08] MEDS ORDERED: ASPIRIN 81 MG ECTAB PO SCH (21:00)
== END 2017-05-08 13:30 | disposition home or self-care (01) ==
LOC: C.EDB 11:19 → C.MED 12:42 → ENRESERV 12:51
PROVIDERS: ADMIT Hospitalist; ATTEND Hospitalist
DX: R07.89 Other chest pain (principal); K21.9 Gastro-esophageal reflux disease without esophagitis; I25.10 Atherosclerotic heart disease of native coronary artery without angina pectoris; F32.9 Major depressive disorder, single episode, unspecified; Z79.82 Long term (current) use of aspirin; Z82.49 Family history of ischemic heart disease and other diseases of the circulatory system

== ENCOUNTER → 2017-10-22 | Outpatient (CLI) | payer BC ==
[~2017-10-22] MED LIST changes: +ASPI81TA28 PO; +CLOP1TAB15 PO; -CYAN500T PO; +MULT-506 PO; +NTRGSL/4 UT; +OMEGCAP2 PO; +PANT40TA PO; +SERT50TA PO; +SIMV40TA2 PO
--- NOTE | 2017-10-23 06:02 | PAP/PSG TECHNICIAN REPORT ---
[facility] Water/Wastewater Project Manager Polysomnogram Report Study name: None Report date: 10/23/2017 Study date: 10/22/2017 Referring Physician: JULEE JARRELL PA-C Name: ANJU HOLLINGSWORTH Interpreting Physician: Anju Collins M.D. Date of : 1965 Water/Wastewater Project Manager: Elva Laws RPS. Sex: Male Age: 52 StudyType: PSG Weight: 185 lbs Height: 52 years, Height 5' 8" BMI: 28.13 Medications: Pantoprazole 40 mg, Simvastatin 40 mg, Sertraline 50 mg, Clopidogrel 75 mg, Multi Vitamin Patient History 52 yr. old male here for a possible split night sleep study. Patient complains of loud snoring and witnessed apneas. Patient has a history of CAD, GERD, obesity and depression. Patients [place] Sleepiness Scale Score is 6/24. Parameters Monitored NPSG: E1-M2, E2-M1, Fp1-M2, Fp2-M1, F3-M2, F4-M2, F4-M1, C3-M2, C4-M2, C4-M1, O1-M2, O2-M2, O2-M1, T3-M2, T4-M1, P3-M2, P4-M1, CHIN1, CHIN2, HR, EKG, Legs, PFLOW, SNOR, FLOW, CFLOW, Tidal Volume, THOR, ABDO, SpO2, PLTH, CPRESS, ETCO2 Wave, ETCO2, pH Sleep Architecture Sleep Stages Time at Lights Off 9:20:14 PM STAGES Time (min.) TST (%) Time at Lights On 5:52:14 AM Wake 55.5 -- Total Recording Time (TRT) 512.50 min. N1 42.5 9 Total Sleep Period (TSP) 496.0 min. N2 314.5 69 Total Sleep Time (TST) 456.5min. N3 2.0 0 Awake Time 55.5 min. REM 97.5 21 Wake after Sleep Onset 39.5 min. Sleep Efficiency (SE) 89 % Sleep Onset Latency (RUDOLPH) 16.0 min. Number of Stage 1 Shifts None Awakenings 31 Stage Changes 144 Number of REM periods 17 REM 97.5 21 REM Latency 81.0 min. NREM 359.0 79 Body Position Analysis Supine Right Left Side Prone Vertical Total Sleep Time (min.) 124.5 182.9 177.5 360.40 0.0 0.5 Total Sleep Time (%) 21% 40% 39% 79 0% N/A% Total Sleep Time REM (min.) 43.5 22.0 32.0 None 0.0 0.0 Total Sleep Time NREM (min.) 52.6 160.9 145.5 None 0.0 0.0 Intermittent Wake (min.) 28.4 11.3 15.3 None 0.0 0.5 Total Sleep Period (%) 22% None None None None None Arousals Myoclonus (PLM) * Events Count Index Events Count Index Spontaneous 28 4 Events Awake (PLMW) 56 60.5 Respiratory 19 3.2 Events Asleep w/ Arousal (PLMA) 43 5.7 PLM 43 6 Events Asleep w/o Arousal (PLMS) 153 20.1 Snoring 21 3 Total Asleep 196 25.8 Total 111 15 Total 252 30 Respiratory Analysis * CA OA MA CH H RERA Total Count 1 5 0 0 30 5 36 Index 0.1 0.7 0.0 0 3.9 1 5.4 Mean Duration 11.0 13.3 0.0 0.00 27.5 23.8 24.9 Longest Duration 11.0 18.9 0.0 0.00 0.0 28.5 49.0 Respiratory Event Summary Total Supine ~Supine Right Left Prone REM NREM Apneas Count 6 1 5 1 4 N/A 2 4 Index 0.8 1 1 0.3 1.4 N/A 1 1 Hypopneas (4% Desat) Count 30 14 16 2 14 N/A 15 15 Index 3.9 8.7 3 0.7 4.7 N/A 9.2 2.5 Apneas & All Hypopneas Count 36 15 21 3 18 N/A 17 19 Index 4.7 9 3 1 6 N/A 10.5 3.2 Respiratory Events (Instructional Developer+All Hyp+RERA) Count 36 17 24 3 21 N/A 17 19 Index 5.4 11 4 1.0 7.1 N/A 11.7 3.7 Respiratory Related Arousal Count 19 17 15 2 13 N/A 7 17 Index 3.2 6 2 1 4 N/A 4 3 Snoring Analysis Supine Right Left Prone REM NREM Total Snore duration 2.8 min Snores count 10 45 26 N/A 16 65 81 Snore mean duration 2.1 Sec Snores index 6 15 9 N/A 9.8 10.9 10.6 TST with snoring (%) 0.6% Desaturation Event Summary: Minimum %SpO2 Event Count Mean/Min/Max Duration(sec.) Desaturation Index % Time In Bed > 90 41 30.1 / 4.2 / 60.0 5.1 94.4 86 - 90 1 17.5 / 17.5 / 17.5 2.1 5.5 81 - 85 0 N/A 0.0 0.0 76 - 80 0 N/A 0.0 0.0 71 - 75 0 N/A 0.0 0.0 66 - 70 0 N/A 0.0 0.0 61 - 65 0 N/A 0.0 0.0 56 - 60 0 N/A 0.0 0.0 51 - 55 0 N/A 0.0 0.0 < 50 0 N/A 0.0 0.0 Total REM NREM Awake <50% 0.0 min. 0.0 min. 0.0 min. 0.0 min. 51 - 60% 0.0 min. 0.0 min. 0.0 min. 0.0 min. 61 - 70% 0.0 min. 0.0 min. 0.0 min. 0.0 min. 71 - 80% 0.0 min. 0.0 min. 0.0 min. 0.0 min. 81 - 90% 28.5 min. 2.6 min. 18.0 min. 8.0 min. 91 - 100% 483.3 min. 95.0 min. 340.8 min. 47.5 min. Average 93 93 93 93 Minimum SpO2 84 87 84 86 Desaturation Event Index 4.8 9.8 3.2 8.6 # Desat. Events below 89% 6 1 3 2 Time(%) with Saturation below 89% 0.2 0.0 0.1 0.1 Time(min.) with Saturation below 89% 1.3 0.2 0.5 0.5 Time (mins) REM (mins) NREM (mins) % of TST SpO2 Below 90% 15 5 N10 1.2 SpO2 Below 88% 1 0 0 0 Heart Rate Analysis Min (bpm) Max (bpm) Average (bpm) Awake 56 95 70 NREM 54 97 66 REM 55 87 68 Overall 54 97 66 Supplemental O2 Values Minimum O2 level: None Value Start Time End Time Water/Wastewater Project Manager Comments Mr. Hollingsworth slept in the right, left, and supine positions. No cardiac arrhythmia. PLMs noted. No bruxism noted. Snoring was noted and scored as a 2 on a scale of 0 through 5. (0=no snoring, 5=snoring loud enough to be heard through a closed door or down the franc[address] way) Mr. Hollingsworth did not wake to use the restroom during the night. Mr. Hollingsworth stated, that was a normal night for him. The final report will be interpreted and signed by a sleep physician. The completed physician report will then be placed in the patient medical record. Therapy (cm H2O) 0 TIB (min.) 512.0 TST (min.) 456.5 Sleep Onset (min.) 16.0 REM Onset From Sleep (min.) 81.0 Sleep Efficiency % 89 Wakefulness (%) 11 Wakefulness (min.) 55.5 NREM 1 (%) 9 NREM 1 (min.) 42.5 NREM 2 (%) 69 NREM 2 (min.) 314.5 NREM 3 (%) 0 NREM 3 (min.) 2.0 REM (%) 21 REM (min.) 97.5 # Arousals 111 Arousal Index 15 # Snore 81 Snore Index 10.6 AHI 4.7 AHI Supine 9 AHI Non-Supine 3 NREM AHI 3.2 REM AHI 10.5 RDI 5.4 # Obstructive Apnea 5 # Central Apnea 1 # Mixed Apnea 0 # Hypopneas 30 RERAs 5 Total Respiratory Events 42 Time Below SpO2 89% (min.) 0.8 Mean NREM SpO2 (%) 93 Mean REM SpO2 (%) 93 Mean Sleep SpO2 (%) 93 Min NREM SpO2 (%) 84 Min REM SpO2 (%) 87 Position Supine (min.) 124.5 Position Non-supine (min.) 360.4 LM Index Sleep 25.8 LM Index NREM 28.1 LM Index REM 17.2 Mean Heart Rate (bpm) 66 Min Heart Rate (bpm) 54
--- NOTE | 2017-10-23 09:49 | POLYSOMNOGRAPH REPORT ---
CLINICAL DATA: A 52-year-old male with BMI of 28.13, referred by Shant Wheeler PA-C, for possible split-night study with loud snoring and witnessed apnea. He has coronary artery disease, reflux, obesity and depression. His [place] Sleepiness score is 6/24. SLEEP ARCHITECTURE: Total sleep period was 496 minutes. Total sleep time was 456.5 minutes divided between 359 minutes of non-REM sleep and 97.5 minutes of REM sleep. Sleep latency was 16 minutes. REM latency was 81 minutes. Sleep efficiency was 89%. Wake after sleep onset was 39.5 minutes. Sleep consisted of stage N1 9%, stage N2 69% and REM 21%. AROUSAL DATA: 111 arousals were recorded for an index of 15 per hour. 43 were due to PLMs events. 19 were due to respiratory events. 21 were due to snoring events. PERIODIC LIMB MOVEMENT DATA: Mildly elevated limb movements during sleep were noted. There were 196 limb movements during sleep noted for an index of 25.8 per hour with arousal index of 5.7 per hour. RESPIRATORY DATA: Borderline sleep apnea/hypopnea was seen. The AHI was 4.7. The RDI was 5.4. There were 1 central and 5 obstructive apneic episodes. The longest apneic episode was 18.9 seconds. There were 30 hypopneic episodes with a mean duration of 27.5 seconds. There were 5 RERAs. The longest RERA was 28.5 seconds. OXIMETRY DATA: Transient hypoxemia was seen. Oxygen danielito was 84% during non-REM sleep. Mean saturation was 93%. Time below 88% was 1 minute. EKG: Heart rates ranged from 54-97 beats per minute. No arrhythmias were noted. HEAD OF PARTNER DEVELOPMENT'S COMMENTS: The patient slept in the right, left and supine position. Snoring was mild, rated 2 on a scale of 1 through 5. The patient felt this was a normal night for him. IMPRESSION: Borderline sleep apnea/hypopnea with an AHI of 4.7 and an RDI of 5.4 with no significant nocturnal hypoxemia. The cut off between normal and abnormal for sleep apnea is 5 events per hour (AHI/RDI=5) RECOMMENDATIONS: The patient may benefit from weight loss, use of an oral appliance or possibly CPAP. Sleep medicine consultation may be of benefit. [facility] CENTERAbena
== END | disposition home or self-care (01) ==
LOC: C.NEUR 21:00
PROVIDERS: ATTEND Physician Assistant
DX: G47.10 Hypersomnia, unspecified (principal); R53.83 Other fatigue; R06.83 Snoring; R06.81 Apnea, not elsewhere classified

== ENCOUNTER 2019-03-01 11:58 | Inpatient (IN) ==
--- OUTSIDE RECORDS SUMMARY | 2019-03-01 12:01 | External Medical Summary | Continuity of Care Document ---
:1965 Author Name Ramirez Agosto, Provider Address Unavailable Unavailable , Care Team Providers Name Role Phone Anju Collins [email or web address] PCP, UNKNOWN Unavailable Unavailable Problems Active medical history not documented Allergies and Adverse Reactions Allergy history not documented Medications Medications not documented Procedures Procedures not documented Immunizations Immunizations not documented Plan of Treatment Planned Observations Planned Goals not documented Results No Known Results Results not documented
[2019-03-01] MEDS ORDERED: SODIUM CHLORIDE 0.9% 1000ML 1,000 ML IV ONE (12:25)
[2019-03-01] MEDS ORDERED: ACETAMINOPHEN 1,000 MG/100 ML VIAL IV STA (12:25)
[2019-03-01] MEDS ORDERED: FAMOTIDINE 20MG IV PUSH 20 MG/5 ML SYR IV STA (12:25)
--- NOTE | 2019-03-01 12:37 | Emergency Department Note ---
History of Present Illness General Chief complaint: Illness Stated complaint: NAUSEA, HEADACHE, SHIVERS, ABD PAIN Time Seen by Provider: 03/01/19 12:07 History of Present Illness Maximum Pain Intensity: 6 53-year-old male who presents to emergency department with complaint of epigastric pain, black diarrhea, dizziness and headache. The patient reports that his symptoms started evening. His reports that he did drink 2 beers and ate a sandwich. Within 3 hours, the patient also had vomiting. The patient did take some Pepto-Bismol yesterday, but reports that the stool was dark before taking the Pepto-Bismol. The patient is currently on Plavix for history of coronary artery disease and LAD stent placement in 2008. The patient denies any significant caffeine use, and denies NSAIDs use. The patient currently rates his discomfort a 6 out of 10. Home Medications Home Medications Medication Instructions Recorded Confirmed Type clopidogrel 75 mg PO DAILY 03/01/19 03/01/19 History multivitamin 1 tab PO DAILY 03/01/19 03/01/19 History omega 3-owp-bjk-fish oil [Fish Oil] 2 cap PO HS 03/01/19 03/01/19 History pantoprazole 40 mg PO BID 03/01/19 03/01/19 History sertraline 50 mg PO HS 03/01/19 03/01/19 History simvastatin 40 mg PO HS 03/01/19 03/01/19 History Allergies Allergy/AdvReac Type Severity Reaction Status Date / Time Penicillins Allergy Intermediate RASH Verified 03/01/19 13:33 Past Med/Surg History Medical History Coronary artery disease (Chronic) Bicuspid aortic valve (Chronic) Depression (Chronic) Migraine with aura (Chronic) Surgical History S/P coronary artery stent placement (Chronic) S/P tonsillectomy (Chronic) S/P inguinal hernia repair (Chronic) H/O vasectomy (Chronic) Family History Father Arrhythmia Heart disease Social History Preferred Language: Greenlandic Communication Ability: Effective Compliance Aide Required: No Beliefs That Will Affect Care: None marital status: Current Living Situation: Spouse current occupational status: employed Other Information That Helps Us Care for You: Yes Feels Safe at Home: Yes Safety Concerns: Feels Safe At This Time Smoking Status: Former smoker Do You Dip or Chew Tobacco: No ; Second Hand Exposure: No ; Tobacco Cessation Education Requested by Patient: No Hx Alcohol Use: Yes Alcohol type: beer Alcohol Intake Frequency Comment: 1-6 light beers daily Hx Substance Use: No Review of Systems HEENT: Denies dizziness, visual problems, hearing loss, tinnitus. Denies difficulty swallowing or oral lesions. PULMONARY: Denies cough, shortness of breath, sputum production or hemoptysis. CARDIOVASCULAR: Denies any significant chest pain, palpitations, dyspnea on exertion, orthopnea or peripheral edema. GASTROINTESTINAL: See HPI for current symptoms, otherwise denies any recent constipation, nausea, vomiting, or abdominal pain. GENITOURINARY: Denies dysuria, frequency, urgency or nocturia. NEUROLOGIC: Denies history of epilepsy, CVA, TIA or chronic headaches. MUSCULOSKELETAL: Denies history of joint tenderness/swelling. SKIN: Denies rashes or lesions. PSYCHIATRIC: History of depression. ENDOCRINE: Denies history of diabetes or thyroid disorders. Physical Exam Vital Signs Vital Signs - 24 hr 03/01/19 12:32 03/01/19 13:14 03/01/19 13:30 Temperature Temperature Source Pulse Rate 91 H 87 Pulse Rate [Apical] Pulse Rate from SpO2 Sensor Pulse Rhythm [Apical] Pulse Strength [Apical] Respiratory Rate 19 20 Respiratory Effort / Characteristics Respiratory Depth Respiratory Pattern Blood Pressure 139/84 143/79 H Blood Pressure [Left Arm] Blood Pressure Mean 102 100 Blood Pressure Mean [Left Arm] Blood Pressure Position [Left Arm] Pulse Oximetry 98 Oxygen Delivery Method Room Air 03/01/19 14:43 03/01/19 15:30 03/01/19 16:00 Temperature Temperature Source Pulse Rate 75 69 73 Pulse Rate [Apical] Pulse Rate from SpO2 Sensor 75 Pulse Rhythm [Apical] Pulse Strength [Apical] Respiratory Rate 18 20 14 Respiratory Effort / Characteristics Respiratory Depth Respiratory Pattern Blood Pressure 142/77 H 139/80 146/88 H Blood Pressure [Left Arm] Blood Pressure Mean 98 99 107 Blood Pressure Mean [Left Arm] Blood Pressure Position [Left Arm] Pulse Oximetry 98 Oxygen Delivery Method 03/01/19 16:30 03/01/19 17:00 03/01/19 17:16 Temperature Temperature Source Pulse Rate 75 73 Pulse Rate [Apical] Pulse Rate from SpO2 Sensor 73 Pulse Rhythm [Apical] Pulse Strength [Apical] Respiratory Rate 21 16 Respiratory Effort / Characteristics Respiratory Depth Respiratory Pattern Blood Pressure 129/85 128/76 Blood Pressure [Left Arm] Blood Pressure Mean 99 93 Blood Pressure Mean [Left Arm] Blood Pressure Position [Left Arm] Pulse Oximetry 98 Oxygen Delivery Method Room Air 03/01/19 17:30 Temperature 36.8 C Temperature Source Oral Pulse Rate Pulse Rate [Apical] 77 Pulse Rate from SpO2 Sensor Pulse Rhythm [Apical] Regular Pulse Strength [Apical] Normal Respiratory Rate 24 Respiratory Effort / Characteristics Non-Labored Respiratory Depth Normal Respiratory Pattern Regular Blood Pressure Blood Pressure [Left Arm] 142/86 H Blood Pressure Mean Blood Pressure Mean [Left Arm] 104 Blood Pressure Position [Left Arm] Lying Pulse Oximetry 99 Oxygen Delivery Method Room Air CONSTITUTIONAL: Healthy and well nourished. Alert and oriented X 3. Patient appears in mild discomfort from headache. HEENT: Normocephalic, atraumatic. Pupils equal, round and reactive. No scleral icterus or conjunctival injection/pallor. NECK: Full active range of motion without discomfort. No JVD or carotid bruits. LYMPHATICS: No cervical chain adenopathy. RESPIRATORY: Clear to auscultation bilaterally with no wheezing, crackles, rhonchi or stridor. CARDIOVASCULAR: Regular rate and rhythm with no murmurs, rubs or gallops. GASTROINTESTINAL: Bowel sounds present in all quadrants. Patient has notable epigastric tenderness to palpation. No additional abdominal rigidity, guarding or rebound. No obvious hepatosplenomegaly or palpable pulsatile masses. MUSCULOSKELETAL: Full range of motion of all joints without discomfort. INTEGUMENTARY: No rash or other significant dermatologic conditions noted. HEMATOLOGIC: No ecchymosis or petechiae. PSYCHIATRIC: Positive affect. NEUROLOGIC: No focal neurologic deficits noted. Course Patient history and physical exam were performed. Nurse's notes were reviewed. Vital signs were reviewed to show an elevated blood pressure. Patient is also tachycardic with an oral temperature of 39.3 C. Prior to IV establishment, the patient was also able to provide a stool sample which was black and tarry in nature with a grossly positive stool Hemoccult test. Large-bore IV access was established x2, and labs were drawn, including blood cultures x2 and blood bank testing for type and cross of 2 units packed red blood cells. The patient was hydrated with a liter normal saline, and administered IV Tylenol, morphine, Zofran and Zantac. The patient was also administer Protonix 80 mg bolus and Protonix drip. Initial ECG showed a normal sinus rhythm without any concerning ST elevations, PVCs or conduction abnormalities. I-STAT labs were reviewed to show a normal hemoglobin of 12.6. Sodium was 129 and potassium 3.2. [id number] lactate was normal at 1.18. Fecal smear was then completed and was normal. Actual lab values did show a sodium of 130 and potassium of 3.1. Hemoglobin and hematocrit were also stable at 13.4 and 37.8, respectively. Urinalysis shows trace proteinuria and ketonuria. LFTs, lipase and troponin were then resulted and normal. D-dimer was elevated at 1940. CT of the chest, abdomen and pelvis with IV contrast did not show evidence for obvious dissection, pulmonary embolus, bowel obstruction or pneumoperitoneum. The patient has notable colitis without evidence for diverticulitis. The case was then further discussed with Dr. Culver, ED attending physician, who recommended hospitalist consultation for upper GI bleed on Plavix, and colitis with fever. He also recommended administering IV Cipro and Flagyl, which was ordered. Upon reevaluation of the patient, the patient reported complete resolution of his headache. I did discuss findings with the patient and , again expressing my concern for possible gastric bleed secondary to alcohol and Plavix use. I also discussed the colitis as probable cause of his fever. I did recommend hospitalist evaluation, and both the patient and agreed. The case was then further discussed with the [facility] hospitalist service, who came to the emergency department for further evaluation. The patient was happy with plan of care, and denied any discomfort at the time of transfer of care. Administered Medications Acetaminophen (Tylenol) 650 mg PO Q4H PRN PRN Reason: Pain or Fever Stop: 03/31/19 18:17 Last Admin: 03/01/19 19:22 Dose: 650 mg Documented by: [id number] Ciprofloxacin (Cipro) 400 mg in 200 mls @ 100 mls/hr IV Q12H [facility]; Protocol Stop: 03/11/19 17:59 Last Infusion: 03/02/19 08:22 Dose: 0 mls/hr Documented by: [id number] Admin: 03/02/19 06:14 Dose: 100 mls/hr Documented by: [id number] Metronidazole (Flagyl) 500 mg in 100 mls @ 100 mls/hr IV Q8H [facility]; Protocol Stop: 03/12/19 00:00 Last Infusion: 03/02/19 09:16 Dose: 0 mls/hr Documented by: [id number] Admin: 03/02/19 07:46 Dose: 100 mls/hr Documented by: [id number] Infusion: 03/02/19 00:54 Dose: 0 mls/hr Documented by: [id number] Admin: 03/01/19 23:39 Dose: 100 mls/hr Documented by: [id number] Acetaminophen (Ofirmev) 1,000 mg in 100 mls @ 400 mls/hr IV Q8H PRN PRN Reason: Fever; mild pain Stop: 03/31/19 18:17 Last Infusion: 03/02/19 04:32 Dose: 0 mls/hr Documented by: [id number] Admin: 03/02/19 04:09 Dose: 400 mls/hr Documented by: [id number] Sertraline HCl (Zoloft) [address] [facility] Stop: 03/31/19 20:59 Last Admin: 03/01/19 21:08 Dose: 50 mg Documented by: [id number] Simvastatin (Zocor) [address] [facility] Stop: 03/31/19 20:59 Last Admin: 03/01/19 21:08 Dose: 40 mg Documented by: [id number] Discontinued Medications Famotidine (Pepcid 20mg Iv Push) 20 mg in 5 mls @ 2.5 mls/min IV NOW STA Stop: 03/01/19 12:26 Last Admin: 03/01/19 13:05 Dose: 2.5 mls/min Documented by: [id number] Acetaminophen (Ofirmev) 1,000 mg in 100 mls @ 400 mls/hr IV NOW STA Stop: 03/01/19 12:39 Last Infusion: 03/01/19 13:23 Dose: 0 mls/hr Documented by: [id number] Admin: 03/01/19 13:05 Dose: 400 mls/hr Documented by: [id number] Sodium Chloride (Nss 1000ml) 1,000 mls @ 999 mls/hr IV .Q1H1M ONE Stop: 03/01/19 13:25 Last Infusion: 03/01/19 14:00 Dose: 0 mls/hr Documented by: [id number] Admin: 03/01/19 13:07 Dose: 999 mls/hr Documented by: [id number] Pantoprazole Sodium 80 mg/ (Dextrose) 120 mls @ 480 mls/hr IV NOW ONE Stop: 03/01/19 13:14 Last Infusion: 03/01/19 14:11 Dose: 0 mls/hr Documented by: [id number] Admin: 03/01/19 13:58 Dose: 480 mls/hr Documented by: [id number] Pantoprazole Sodium 40 mg/ (Dextrose) 100 mls @ 20 mls/hr IV Q5H ANYI Stop: 03/01/19 18:14 Last Infusion: 03/02/19 05:09 Dose: 0 mls/hr Documented by: [id number] Infusion: 03/01/19 17:17 Dose: 0 mls/hr Documented by: [id number] Admin: 03/01/19 13:58 Dose: 20 mls/hr Documented by: [id number] Metronidazole (Flagyl) 500 mg in 100 mls @ 100 mls/hr IV NOW STA Stop: 03/01/19 16:11 Last Infusion: 03/01/19 17:09 Dose: 0 mls/hr Documented by: [id number] Infusion: 03/01/19 15:59 Dose: 100 mls/hr Documented by: [id number] Infusion: 03/01/19 15:32 Dose: 0 mls/hr Documented by: [id number] Admin: 03/01/19 15:29 Dose: 100 mls/hr Documented by: [id number] Ciprofloxacin (Cipro) 400 mg in 200 mls @ 200 mls/hr IV NOW STA Stop: 03/01/19 16:11 Last Infusion: 03/01/19 16:32 Dose: 0 mls/hr Documented by: [id number] Admin: 03/01/19 15:29 Dose: 200 mls/hr Documented by: [id number] Pantoprazole Sodium 40 mg/ (Dextrose) 100 mls @ 20 mls/hr IV Q5H ANYI Stop: 03/31/19 18:59 Last Infusion: 03/02/19 10:40 Dose: 0 mls/hr Documented by: [id number] Admin: 03/02/19 10:02 Dose: 20 mls/hr Documented by: [id number] Infusion: 03/02/19 09:32 Dose: 20 mls/hr Documented by: [id number] Admin: 03/02/19 04:32 Dose: 20 mls/hr Documented by: [id number] Infusion: 03/02/19 04:32 Dose: 0 mls/hr Documented by: [id number] Admin: 03/01/19 23:40 Dose: 20 mls/hr Documented by: [id number] Infusion: 03/01/19 23:40 Dose: 20 mls/hr Documented by: [id number] Admin: 03/01/19 19:22 Dose: 20 mls/hr Documented by: [id number] Sodium Chloride (Nss 1000ml) 1,000 mls @ 100 mls/hr IV .Q10H [facility]I Stop: 03/02/19 04:17 Last Infusion: 03/02/19 05:08 Dose: 0 mls/hr Documented by: [id number] Admin: 03/01/19 19:22 Dose: 100 mls/hr Documented by: [id number] Ioversol (Optiray 320 125ml) 119 ml IV ONCE PRN PRN Reason: Interaction Checking Stop: 03/05/19 13:47 Last Admin: 03/01/19 13:49 Dose: 119 ml Documented by: [id number] Lorazepam (Ativan) 1 mg PO ONE PRN; Protocol PRN Reason: EtoH Withdrawal AWSS 6-10 Last Admin: 03/01/19 21:08 Dose: 1 mg Documented by: [id number] Morphine Sulfate (Morphine Sulfate) 6 mg IV NOW STA Stop: 03/01/19 12:50 Last Admin: 03/01/19 13:06 Dose: Not Given Documented by: [id number] Morphine Sulfate (Morphine Sulfate) Confirm Administered Dose 4 mg .ROUTE .STK- MED ONE Stop: 03/01/19 13:03 Last Admin: 03/01/19 13:33 Dose: 4 mg Documented by: [id number] Morphine Sulfate (Morphine Sulfate) Confirm Administered Dose 2 mg .ROUTE .STK- MED ONE Stop: 03/01/19 13:03 Last Admin: 03/01/19 13:34 Dose: 2 mg Documented by: [id number] Ondansetron HCl (Zofran) 4 mg IV NOW STA Stop: 03/01/19 12:50 Last Admin: 03/01/19 13:06 Dose: 4 mg Documented by: [id number] Potassium Chloride (Klor-Con M20) 40 meq PO NOW STA Stop: 03/01/19 16:12 Last Admin: 03/01/19 16:50 Dose: 40 meq Documented by: [id number] Potassium Chloride (Klor-Con M20) 20 meq PO ONE ONE Stop: 03/01/19 21:01 Last Admin: 03/01/19 21:08 Dose: 20 meq Documented by: [id number] Potassium Chloride (Klor-Con M20) 40 meq PO NOW STA Stop: 03/02/19 08:44 Last Admin: 03/02/19 10:17 Dose: 40 meq Documented by: [id number] Medical Decision Making Medical Records Attestation: I reviewed the patient's medical records. Home Medications Current Medication List: was personally reviewed by me Laboratory Data Attestation: I reviewed the patient's lab results. Result diagrams: 03/02/19 07:25 03/02/19 07:25 Lab Results 03/01/19 03/01/19 03/01/19 Range/Units 12:40 12:40 12:45 WBC 4.24 L (4.8-10.8) K/uL RBC 4.20 L (4.7-6.1) M/uL Hgb 13.4 L (14.0-18.0) g/dL POC Hgb (14.0-18.0) g/dl Hct 37.8 L (42-52) % POC Hct (42-52) % MCV 90.0 (80-100) fL MCH 31.9 (25-34) pg MCHC 35.4 (32-36) g/dL RDW Std Deviation 43.6 (36.4-46.3) fL RDW Coeff of Chris 13.2 (11.5-14.5) % Plt Count 152 (130-400) K/uL MPV 9.7 (7.4-10.4) fL Immature Gran % (Auto) 0.2 % Neut % (Auto) 78.1 % Lymph % (Auto) 13.2 % [place] % (Auto) 8.5 % Eos % (Auto) 0.0 % Baso % (Auto) 0.0 % Immature Gran # (Auto) 0.01 (0.00-0.02) K/uL Neut # (Auto) 3.31 (1.4-6.5) K/uL Lymph # (Auto) 0.56 L (1.2-3.4) K/uL [place] # (Auto) 0.36 (0.11-0.59) K/uL Eos # (Auto) 0.00 (0-0.5) K/uL Baso # (Auto) 0.00 (0-0.2) K/uL PT (9.0-12.0) Seconds INR (0.9-1.1) APTT (21.0-31.0) Seconds PTT Ratio D-Dimer (0-500) ug/L FEU POC Sodium (135-144) mEq/L Sodium (136-145) mmol/L POC Potassium (3.3-5.0) mEq/L Potassium (3.5-5.1) mmol/L POC Chloride (101-112) mEq/L Chloride (98-107) mmol/L Carbon Dioxide (21-32) mmol/L POC Total CO2 (24-31) mEq/l Anion Gap (3-11) POC Anion Gap (16-25) mmol/L POC BUN (7-18) mg/dl BUN (7-18) mg/dl Creatinine (0.6-1.4) mg/dl POC Creatinine (0.6-1.3) mg/dl Est Cr Clr Drug Dosing ml/min Est GFR ( Amer) Est GFR (Non-Af Amer) BUN/Creatinine Ratio (10-20) Glucose (70-99) mg/dl POC Glucose (other) (70-99) mg/dl POC Lactic Acid Monty (0.90-1.70) mmol/L Lactate (0.4-2.0) mmol/L Calcium (8.5-10.1) mg/dl POC Ioniz Calcium Carmela (1.12-1.32) mmol/l Total Bilirubin (0.2-1) mg/dl AST (15-37) U/L ALT (12-78) U/L Alkaline Phosphatase (45-117) U/L Total Creatine Kinase (39-308) U/L Troponin I (0-0.045) ng/ml Total Protein (6.4-8.2) gm/dl Albumin (3.4-5.0) gm/dl Globulin (2.5-4.0) gm/dl Albumin/Globulin Ratio (0.9-2) Lipase (73-393) U/L Urine Color Dark Yellow Urine Appearance Clear (Clear) Urine pH 5.0 (4.5-7.5) Ur Specific [place] 1.025 (1.000-1.030) Urine Protein Trace H (Negative) Urine Glucose (UA) Negative (Negative) Urine Ketones 2+ H (Negative) Urine Blood Negative (Negative) Urine Nitrite Negative (Negative) Urine Bilirubin Negative (Negative) Urine Urobilinogen Negative (Negative) Ur Leukocyte Esterase Negative (Negative) Urine WBC (Auto) 1-5 (0-5) /hpf Urine RBC (Auto) 0-4 (0-4) /hpf U Hyaline Cast (Auto) 1-5 (0-5) /lpf U Epithel Cells (Auto) 10-20 H (0-5) /lpf Urine Bacteria (Auto) Negative (Negative) POC Stool Occult Blood Positive A (Negative) Blood Type Antibody Screen Crossmatch 03/01/19 03/01/19 03/01/19 Range/Units 12:45 12:45 12:50 WBC (4.8-10.8) K/uL RBC (4.7-6.1) M/uL Hgb (14.0-18.0) g/dL POC Hgb (14.0-18.0) g/dl Hct (42-52) % POC Hct (42-52) % MCV (80-100) fL MCH (25-34) pg MCHC (32-36) g/dL RDW Std Deviation (36.4-46.3) fL RDW Coeff of Chris (11.5-14.5) % Plt Count (130-400) K/uL MPV (7.4-10.4) fL Immature Gran % (Auto) % Neut % (Auto) % Lymph % (Auto) % [place] % (Auto) % Eos % (Auto) % Baso % (Auto) % Immature Gran # (Auto) (0.00-0.02) K/uL Neut # (Auto) (1.4-6.5) K/uL Lymph # (Auto) (1.2-3.4) K/uL [place] # (Auto) (0.11-0.59) K/uL Eos # (Auto) (0-0.5) K/uL Baso # (Auto) (0-0.2) K/uL PT 10.1 (9.0-12.0) Seconds INR 1.0 (0.9-1.1) APTT 30.7 (21.0-31.0) Seconds PTT Ratio 1.1 D-Dimer 1940 H* (0-500) ug/L FEU POC Sodium (135-144) mEq/L Sodium 130 L (136-145) mmol/L POC Potassium (3.3-5.0) mEq/L Potassium 3.1 L (3.5-5.1) mmol/L POC Chloride (101-112) mEq/L Chloride 95 L (98-107) mmol/L Carbon Dioxide 26 (21-32) mmol/L POC Total CO2 (24-31) mEq/l Anion Gap 9.0 (3-11) POC Anion Gap (16-25) mmol/L POC BUN (7-18) mg/dl BUN 12 (7-18) mg/dl Creatinine 0.92 (0.6-1.4) mg/dl POC Creatinine (0.6-1.3) mg/dl Est Cr Clr Drug Dosing 96.0 ml/min Est GFR ( Amer) 108.1 Est GFR (Non-Af Amer) 93.3 BUN/Creatinine Ratio 12.9 (10-20) Glucose 103 H (70-99) mg/dl POC Glucose (other) (70-99) mg/dl POC Lactic Acid Monty (0.90-1.70) mmol/L Lactate (0.4-2.0) mmol/L Calcium 8.5 (8.5-10.1) mg/dl POC Ioniz Calcium Carmela (1.12-1.32) mmol/l Total Bilirubin 0.8 (0.2-1) mg/dl AST 17 (15-37) U/L ALT 22 (12-78) U/L Alkaline Phosphatase 52 (45-117) U/L Total Creatine Kinase 71 (39-308) U/L Troponin I < 0.015 (0-0.045) ng/ml Total Protein 7.3 (6.4-8.2) gm/dl Albumin 3.8 (3.4-5.0) gm/dl Globulin 3.5 (2.5-4.0) gm/dl Albumin/Globulin Ratio 1.1 (0.9-2) Lipase 128 (73-393) U/L Urine Color Urine Appearance (Clear) Urine pH (4.5-7.5) Ur Specific [place] (1.000-1.030) Urine Protein (Negative) Urine Glucose (UA) (Negative) Urine Ketones (Negative) Urine Blood (Negative) Urine Nitrite (Negative) Urine Bilirubin (Negative) Urine Urobilinogen (Negative) Ur Leukocyte Esterase (Negative) Urine WBC (Auto) (0-5) /hpf Urine RBC (Auto) (0-4) /hpf U Hyaline Cast (Auto) (0-5) /lpf U Epithel Cells (Auto) (0-5) /lpf Urine Bacteria (Auto) (Negative) POC Stool Occult Blood (Negative) Blood Type A Positive Antibody Screen NEGATIVE Crossmatch See Detail 03/01/19 03/01/19 03/01/19 Range/Units 13:09 13:13 17:04 WBC (4.8-10.8) K/uL RBC (4.7-6.1) M/uL Hgb (14.0-18.0) g/dL POC Hgb 12.6 L (14.0-18.0) g/dl Hct (42-52) % POC Hct 37 L (42-52) % MCV (80-100) fL MCH (25-34) pg MCHC (32-36) g/dL RDW Std Deviation (36.4-46.3) fL RDW Coeff of Chris (11.5-14.5) % Plt Count (130-400) K/uL MPV (7.4-10.4) fL Immature Gran % (Auto) % Neut % (Auto) % Lymph % (Auto) % [place] % (Auto) % Eos % (Auto) % Baso % (Auto) % Immature Gran # (Auto) (0.00-0.02) K/uL Neut # (Auto) (1.4-6.5) K/uL Lymph # (Auto) (1.2-3.4) K/uL [place] # (Auto) (0.11-0.59) K/uL Eos # (Auto) (0-0.5) K/uL Baso # (Auto) (0-0.2) K/uL PT (9.0-12.0) Seconds INR (0.9-1.1) APTT (21.0-31.0) Seconds PTT Ratio D-Dimer (0-500) ug/L FEU POC Sodium 129 L (135-144) mEq/L Sodium (136-145) mmol/L POC Potassium 3.2 L (3.3-5.0) mEq/L Potassium (3.5-5.1) mmol/L POC Chloride 94 L (101-112) mEq/L Chloride (98-107) mmol/L Carbon Dioxide (21-32) mmol/L POC Total CO2 21 L (24-31) mEq/l Anion Gap (3-11) POC Anion Gap 18.0 (16-25) mmol/L POC BUN 11 (7-18) mg/dl BUN (7-18) mg/dl Creatinine (0.6-1.4) mg/dl POC Creatinine 0.8 (0.6-1.3) mg/dl Est Cr Clr Drug Dosing ml/min Est GFR ( Amer) Est GFR (Non-Af Amer) BUN/Creatinine Ratio (10-20) Glucose (70-99) mg/dl POC Glucose (other) 105 H (70-99) mg/dl POC Lactic Acid Monty 1.18 (0.90-1.70) mmol/L Lactate 1.4 (0.4-2.0) mmol/L Calcium (8.5-10.1) mg/dl POC Ioniz Calcium Carmela 1.04 L (1.12-1.32) mmol/l Total Bilirubin (0.2-1) mg/dl AST (15-37) U/L ALT (12-78) U/L Alkaline Phosphatase (45-117) U/L Total Creatine Kinase (39-308) U/L Troponin I (0-0.045) ng/ml Total Protein (6.4-8.2) gm/dl Albumin (3.4-5.0) gm/dl Globulin (2.5-4.0) gm/dl Albumin/Globulin Ratio (0.9-2) Lipase (73-393) U/L Urine Color Urine Appearance (Clear) Urine pH (4.5-7.5) Ur Specific [place] (1.000-1.030) Urine Protein (Negative) Urine Glucose (UA) (Negative) Urine Ketones (Negative) Urine Blood (Negative) Urine Nitrite (Negative) Urine Bilirubin (Negative) Urine Urobilinogen (Negative) Ur Leukocyte Esterase (Negative) Urine WBC (Auto) (0-5) /hpf Urine RBC (Auto) (0-4) /hpf U Hyaline Cast (Auto) (0-5) /lpf U Epithel Cells (Auto) (0-5) /lpf Urine Bacteria (Auto) (Negative) POC Stool Occult Blood (Negative) Blood Type Antibody Screen Crossmatch Imaging Data Attestation: I personally reviewed and interpreted this imaging study as follows: My Impression: Chest CT angiography does not show any obvious pulmonary embolus. CT of the abdomen and pelvis with IV contrast shows a colitis of the descending, transverse and proximal descending colon. No obstruction, diverticulitis or free air appreciated. Radiologist reports were also reviewed. Radiologist's Impression: CT ANGIOGRAM OF THE CHEST; CT SCAN OF THE ABDOMEN AND PELVIS WITH IV CONTRAST CLINICAL HISTORY: Epigastric abdominal pain. Elevated d-dimer. COMPARISON STUDY: Chest x-ray dated 05/07/2017. TECHNIQUE: Following the IV administration of 119 of Optiray 320, CT angiogram of the chest is performed from the upper abdomen to the thoracic inlet utilizing the pulmonary embolus protocol. Images are reviewed in the axial, sagittal, coronal planes. 3-D MIPS images are created and assessed. Subsequently, CT scan of the abdomen and pelvis was performed from the lung bases to the proximal femora. Images are reviewed in the axial, sagittal, and coronal planes. IV contrast was administered without complication. A dose lowering technique was utilized adhering to the principles of ALARA. CT DOSE: 832.32 mGy.cm FINDINGS: CHEST: Thyroid: Imaged portions of the thyroid gland are normal in size and attenuation. Thoracic aorta: The thoracic aorta is normal in caliber and demonstrates standard 3-vessel arch anatomy. No dissection is seen. Pulmonary vasculature: The pulmonary trunk is normal in caliber. There are no filling defects identified in the main, lobar, or segmental pulmonary arteries to indicate pulmonary embolus. Heart: The heart is mildly enlarged and without pericardial effusion. A stent is noted in the left coronary artery. Lungs and pleural spaces: There is no airspace consolidation or pleural effusion. Dependent atelectasis is noted. The trachea and central airways are c lear. Mediastinum: There is no mediastinal lymphadenopathy. Amber: Clear. Axillae: There is no axillary lymphadenopathy. Bony thorax: No lytic or blastic lesions are identified. ABDOMEN AND PELVIS: Liver: The contrast-enhanced liver is mildly enlarged measuring 18.7 cm in length. The liver demonstrates diminished attenuation consistent with mild steatosis. There is no intrahepatic or ductal dilatation. The hepatic veins and portal veins are patent. A 10 mm cyst is noted in the right lobe. Gallbladder: Unremarkable. Spleen: Normal in size and attenuation. Pancreas: Unremarkable. Adrenal glands: Unremarkable. Kidneys: The contrast enhanced kidneys are normal in size and without hydr onephrosis. The kidneys enhance symmetrically. A 6 cm cyst arises from the lower pole of the left kidney. Abdominal vasculature: The abdominal aorta is normal in course and caliber. Bowel: There is wall thickening and edema identified involving the right colon, extending from the cecum to the proximal descending colon. There is pericolonic infiltration, and the appearance is consistent with a nonspecific colitis. There are scattered colonic diverticula without CT evidence of acute diverticulitis. No bowel obstruction is seen. The appendix is well-visualized and normal. Peritoneum: There is no intraperitoneal free air. Trace free fluid is seen in the right paracolic gutter. There is a small fat-containing umbilical hernia. Lymphadenopathy: None. Pelvic viscera: The prostate gland is enlarged and heterogeneous noting median lobe hypertrophy. The bladder wall appears thickened and trabeculated indicating chronic outlet obstruction. There is a fat-containing left inguinal hernia. Skeletal structures: No lytic or blastic lesions are seen. There is mild lumbosacral spondylosis. IMPRESSION: 1. There is no evidence of pulmonary embolus in the main, lobar, or segmental pulmonary arteries. 2. There is no airspace consolidation or pleural effusion. 3. Findings are consistent with a nonspecific colitis, likely on an infectious or inflammatory basis. Clinical correlation will be required. 4. Hepatomegaly and mild steatosis. 5. Additional findings as above. ECG Data Attestation: I personally reviewed and interpreted this ECG as follows: Indication: abdominal pain Rate (beats per minute): 97 Rhythm: normal sinus Findings: + other (No ST elevations, PVCs or other conduction abnormalities) Comparison ECG Date: from (05/08/2017) Change: no significant change Blood Pressure Blood Pressure Findings: Elevated blood pressure Blood Pressure Disposition: further management by hospitalist CARMEN Arredondo Patient presents to emergency department with concerning symptoms of melena with epigastric pain and fever. The patient is currently on Plavix after having a drug-eluting stent placed in 2008. Initial concern was for acute GI bleed with possible gastric perforation. It was noted that the patient's hemoglobin was normal. CT scan shows evidence for colitis without other acute findings such as obstruction, abdominal free air, appendicitis or other concerns. Xnqur-xe-[id number] lactate was normal. Blood cultures x2 were collected and are currently pending. Given the patient's gastric bleed and being on Plavix, I do feel that further close observation is warranted. Impression & Plan UGIB (upper gastrointestinal bleed), S/P coronary artery stent placement, Colitis Critical Care Time Critical Care Time: Yes Total Critical Care Time: 40 I have personally spent approximately 40 minutes of critical care time in the direct management of this patient. This includes bedside care, interpretation of diagnostic studies, and testing, discussion with consultants, patient, and family members, and other required patient management activities. This 40 minutes is in excess of all separately billable procedures. Patient initially met SIRS criteria with elevated temperature and heart rate. Blood cultures were ordered and are pending. He also had clinical history concerning for gastric bleed on Plavix. Discharge Plan Visit Data *Final* Discharge Date/Time: 03/01/19 17:16 Chief Complaint: Illness Stated Complaint: NAUSEA, HEADACHE, SHIVERS, ABD PAIN ED Provider: Nitin Culver ED Midlevel Provider: Cheo Alba Discharge Problem: UGIB (upper gastrointestinal bleed), S/P coronary artery stent placement, Colitis Patient Disposition: Admitted As Inpatient Discharge Instructions Interventions: ED Discharge Assessment Last Done: 03/01/19 17:16
[2019-03-01] MEDS ORDERED: SODIUM CHLORIDE 0.9% 250 ML IV PRN ×2 (12:44→18:18)
[2019-03-01] MEDS ORDERED: ONDANSETRON INJ 2 MG/ML 2 ML VIAL IV STA (12:49)
[2019-03-01] MEDS ORDERED: MoRPHine SULFATE 10 MG/ML CARP/VIAL IV STA (12:49)
[2019-03-01 12:59] LABS: Appearance Urine Clear (Clear); Bacteria Urine Automated Negative (Negative); Blood Urine Negative (Negative); Color Urine Dark Yellow; Glucose Urine UA Negative (Negative); Ketones Urine 2+ (Negative); Leukocyte Esterase Urine Negative (Negative); Nitrite Urine Negative (Negative); Protein Urine Trace (Negative); RBC Urine Automated 0-4 /hpf (0-4); Specific Gravity Urine 1.025 (1.000-1.030); Urobilinogen Urine Negative (Negative)
[2019-03-01] MEDS ORDERED: PANTOprazole 80 MG in DEXTROSE 5% 100 ML IV ONE (13:00)
[2019-03-01] MEDS ORDERED: MoRPHine SULFATE 4 MG/ML 1 ML CARP\\VIAL ONE (13:02)
[2019-03-01] MEDS ORDERED: MoRPHine SULFATE 2 MG/ML CARP ONE (13:02)
[2019-03-01 13:14] LABS: Hematocrit (blood only) 37.8 % (42-52); Hemoglobin 13.4 g/dL (14.0-18.0); Immature Granulocytes # (auto) 0.01 K/uL (0.00-0.02); Immature Granulocytes % (auto) 0.2 %; Lymphocytes # (auto) 0.56 K/uL (1.2-3.4); Lymphocytes % (auto) 13.2 %; Mean Corpuscular Hgb Conc 35.4 g/dL (32-36); Mean Platelet Volume 9.7 fL (7.4-10.4); Monocytes # (auto) 0.36 K/uL (0.11-0.59); Monocytes % (auto) 8.5 %; Neutrophils # (auto) 3.31 K/uL (1.4-6.5); Neutrophils % (auto) 78.1 %; Platelet Count 152 K/uL (130-400); RDW Coefficient of Variation 13.2 % (11.5-14.5); RDW Standard Deviation 43.6 fL (36.4-46.3); White Blood Count 4.24 K/uL (4.8-10.8)
[2019-03-01] MEDS ORDERED: PANTOprazole 40 MG in DEXTROSE 5% 100 ML IV SCH (13:15)
[2019-03-01 13:17] LABS: Bilirubin Urine Negative (Negative); Ictotest Urine Negative (Negative)
[2019-03-01 13:26] LABS: iSTAT Creatinine 0.8 mg/dl (0.6-1.3); iSTAT Hemoglobin 12.6 g/dl (14.0-18.0); iSTAT Ionized Calcium 1.04 mmol/l (1.12-1.32); iSTAT Potassium 3.2 mEq/L (3.3-5.0)
[2019-03-01 13:26] LABS: Partial Thromboplastin Ratio 1.1; Partial Thromboplastin Time 30.7 Seconds (21.0-31.0); Prothrombin Time 10.1 Seconds (9.0-12.0)
[2019-03-01 13:31] LABS: Alanine Aminotransferase 22 U/L (12-78); Albumin Level 3.8 gm/dl (3.4-5.0); Aspartate Aminotransferase 17 U/L (15-37); BUN Creatinine Ratio 12.9 (10-20); Blood Urea Nitrogen 12 mg/dl (7-18); Calcium 8.5 mg/dl (8.5-10.1); Carbon Dioxide 26 mmol/L (21-32); Chloride 95 mmol/L (98-107); Est GFR (African American) 108.1; Est GFR (Non-African American) 93.3; Glucose 103 mg/dl (70-99); Potassium 3.1 mmol/L (3.5-5.1); Sodium 130 mmol/L (136-145)
[2019-03-01 13:36] LABS: Albumin Globulin Ratio 1.1 (0.9-2); Alkaline Phosphatase 52 U/L (45-117); Bilirubin,Total 0.8 mg/dl (0.2-1); Creatine Kinase 71 U/L (39-308); Globulin 3.5 gm/dl (2.5-4.0); Total Protein 7.3 gm/dl (6.4-8.2); Troponin I < 0.015 ng/ml (0-0.045)
[2019-03-01 13:43] LABS: D Dimer 1940 ug/L FEU (0-500)
[2019-03-01] MEDS ORDERED: OPTIRAY 320 125ml IV PRN (13:48)
--- NOTE | 2019-03-01 14:23 | CT Scan Report ---
CT ANGIOGRAM OF THE CHEST; CT SCAN OF THE ABDOMEN AND PELVIS WITH IV CONTRAST CLINICAL HISTORY: Epigastric abdominal pain. Elevated d-dimer. COMPARISON STUDY: Chest x-ray dated 05/07/2017. TECHNIQUE: Following the IV administration of 119 of Optiray 320, CT angiogram of the chest is perfor med from the upper abdomen to the thoracic inlet utilizing the pulmonary embolus protocol. Images are reviewed in the axial, sagittal, coronal planes. 3-D MIPS images are created and assessed. Subsequen tly, CT scan of the abdomen and pelvis was performed from the lung bases to the proximal femora. Imag es are reviewed in the axial, sagittal, and coronal planes. IV contrast was administered without comp lication. A dose lowering technique was utilized adhering to the principles of ALARA. CT DOSE: 832.32 mGy.cm FINDINGS: CHEST: Thyroid: Imaged portions of the thyroid gland are normal in size and attenuation. Thoracic aorta: The thoracic aorta is normal in caliber and demonstrates standard 3-vessel arch anato my. No dissection is seen. Pulmonary vasculature: The pulmonary trunk is normal in caliber. There are no filling defects identif ied in the main, lobar, or segmental pulmonary arteries to indicate pulmonary embolus. Heart: The heart is mildly enlarged and without pericardial effusion. A stent is noted in the left co ronary artery. Lungs and pleural spaces: There is no airspace consolidation or pleural effusion. Dependent atelectas is is noted. The trachea and central airways are clear. Mediastinum: There is no mediastinal lymphadenopathy. Amber: Clear. Axillae: There is no axillary lymphadenopathy. Bony thorax: No lytic or blastic lesions are identified. ABDOMEN AND PELVIS: Liver: The contrast-enhanced liver is mildly enlarged measuring 18.7 cm in length. The liver demonstr ates diminished attenuation consistent with mild steatosis. There is no intrahepatic or ductal dilata tion. The hepatic veins and portal veins are patent. A 10 mm cyst is noted in the right lobe. Gallbladder: Unremarkable. Spleen: Normal in size and attenuation. Pancreas: Unremarkable. Adrenal glands: Unremarkable. Kidneys: The contrast enhanced kidneys are normal in size and without hydronephrosis. The kidneys enh ance symmetrically. A 6 cm cyst arises from the lower pole of the left kidney. Abdominal vasculature: The abdominal aorta is normal in course and caliber. Bowel: There is wall thickening and edema identified involving the right colon, extending from the ce cum to the proximal descending colon. There is pericolonic infiltration, and the appearance is consis tent with a nonspecific colitis. There are scattered colonic diverticula without CT evidence of acute diverticulitis. No bowel obstruction is seen. The appendix is well-visualized and normal. Peritoneum: There is no intraperitoneal free air. Trace free fluid is seen in the right paracolic gut ter. There is a small fat-containing umbilical hernia. Lymphadenopathy: None. Pelvic viscera: The prostate gland is enlarged and heterogeneous noting median lobe hypertrophy. The bladder wall appears thickened and trabeculated indicating chronic outlet obstruction. There is a fat -containing left inguinal hernia. Skeletal structures: No lytic or blastic lesions are seen. There is mild lumbosacral spondylosis. IMPRESSION: 1. There is no evidence of pulmonary embolus in the main, lobar, or segmental pulmonary arteries. 2. There is no airspace consolidation or pleural effusion. 3. Findings are consistent with a nonspecific colitis, likely on an infectious or inflammatory basis. Clinical correlation will be required. 4. Hepatomegaly and mild steatosis. 5. Additional findings as above. Electronically signed by: Trenton Sierra M.D. 03/01/2019 2:20 PM
[2019-03-01] MEDS ORDERED: metroNIDAZOLE 500 MG/100 ML BAG IV STA (15:12)
[2019-03-01] MEDS ORDERED: CIPROFLOXACIN 400 MG/200 ML BAG IV STA (15:12)
[2019-03-01] MEDS ORDERED: POTASSIUM CHLORIDE 20 MEQ TABCR PO STA (16:11)
--- NOTE | 2019-03-01 16:14 | History & Physical Report ---
Date of Service March 01, 2019 Assessment & Plan (1) Epigastric abdominal pain: (2) UGIB (upper gastrointestinal bleed): (3) Colitis: This is a 53-year-old male who has a significant past medical history of CAD with history of VICTOR HUGO to LAD in 2008, bicuspid aortic valve, GERD who presents to [facility] ED secondary to abdominal pain, dark/tarry stool x2 days. Upon admission pt met SIRS criteria 2/2 Temp 39.3, HR 104 He does not appear septic, HR has improved and he is hemodynamically stable with 1 L IVF -HR may have also been elevated in setting of pain H/H stable at 13.4 and 37.8, WBC 4.24 CT scan abd/pelvis: Nonspecific colitis right colon, extending from the cecum to the proximal descending colon. Likely infectious vs inflammatory FOBT + In ED pt received IV PPI bolus and gtt, IV acetaminophen for fever, IV morphine for pain, IVF Resuscitation, IV ciprofloxacin and Flagyl His abdominal pain is currently improved and patient is feeling better given above admit to med/surg telemetry consult GI Continue PPI bolus/gtt continue IV Cipro and Flagyl for colitis clear liquid diet, NPO after midnight in event pt to undergo procedure H/H q6 hr stool for hpylori pending, lactic acid ordered pt type and cross with 2 units on hold, currently H/H stable Hold Plavix replace electrolytes received 1L IVF while in ED, will administer additional IVF due to poor po intake Morphine/APAP prn for pain (4) Hypokalemia: replace with 40meq KCL x 1 now and additional 20meq KCL this evening follow bmp likely in setting of GI Loss (5) Coronary artery disease: No chest pain/SOB ECG: NSR, no ST T wave changes, troponin negative on plavix, statin ( to also be on ASA 81mg but patient has not been taking) hold plavix (6) Depression: continue zoloft (7) Alcohol use: 1-4 light beers daily ( up to 6 on weekends) AWSS protocol, prn lorazepam hold on gabapentin taper for now last drink yesterday (8) DVT prophylaxis: none in setting of upper GIB monitor Disposition: likely discharge to home when able Follow up: PCP upon discharge Patient was seen and examined in collaboration with Dr. Lombardi, please see addendum History of Present Illness Chief Complaint: Abdominal pain, dark/tarry stool x 2 days. Primary Care Provider: Shant Ojeda MD This is a 53-year-old male who has a significant past medical history of CAD with history of VICTOR HUGO to LAD in 2008, bicuspid aortic valve, GERD who presents to [facility] ED secondary to abdominal pain, dark/tarry stool x2 days. at bedside. Patient states on evening at approximately 8 PM he ate a tomato/quarles sandwich and abruptly at 9 PM developed epigastric abdominal pain, nausea and emesis x3. Abdominal pain persisted, would come and go/intermittent, located in epigastrium, nonradiating, made worse with food, associated with dark/tarry diarrhea. Pain would be sharp and stabbing at times and also described as ache. Currently 08/01 but [employer] 12/30. Tried Pepto-Bismol x2 without relief. Dark/tarry BM was present prior to Pepto-Bismol. He admits to feeling chilled but denies sweats. Admits to being lightheaded with prolonged standing and movement, ringing in ears. Denies ever having symptoms like this in the past. No known sick contacts. No recent travel. Denies any significant NSAID use. Drinks approximately 1-4 light beers daily and up to 6 light beers daily on weekends. Denies syncope, chest pain, shortness breath, LAMA, palpitations, hemoptysis, dysuria, increased urgency or frequency with urination. Significantly decreased appetite. No known weight loss. Allergies Allergy/AdvReac Type Severity Reaction Status Date / Time Penicillins Allergy Intermediate RASH Verified 03/01/19 13:33 Home Medications Home Medications Medication Instructions Recorded Confirmed Type clopidogrel 75 mg PO DAILY 03/01/19 03/01/19 History multivitamin 1 tab PO DAILY 03/01/19 03/01/19 History omega 6-vdh-tuz-fish oil [Fish Oil] 2 cap PO HS 03/01/19 03/01/19 History pantoprazole 40 mg PO BID 03/01/19 03/01/19 History sertraline 50 mg PO HS 03/01/19 03/01/19 History simvastatin 40 mg PO HS 03/01/19 03/01/19 History Past Med/Surg History Medical History Coronary artery disease (Chronic) Bicuspid aortic valve (Chronic) Depression (Chronic) Migraine with aura (Chronic) Surgical History S/P coronary artery stent placement (Chronic) S/P tonsillectomy (Chronic) S/P inguinal hernia repair (Chronic) H/O vasectomy (Chronic) Family History Father Arrhythmia Heart disease Social History Preferred Language: Jamaican Communication Ability: Effective Taxi Driver Required: No Beliefs That Will Affect Care: None marital status: Current Living Situation: Spouse current occupational status: employed Other Information That Helps Us Care for You: Yes Feels Safe at Home: Yes Safety Concerns: Feels Safe At This Time Smoking Status: Former smoker Do You Dip or Chew Tobacco: No ; Second Hand Exposure: No ; Tobacco Cessation Education Requested by Patient: No Hx Alcohol Use: Yes Alcohol type: beer Alcohol Intake Frequency Comment: 1-6 light beers daily Hx Substance Use: No Review of Systems Review of Systems: As noted per HPI, 10 systems reviewed and negative unless noted above. Physical Exam Physical Exam: Gen: WD/WN, M, NAD, sitting up in bed, pleasant, conversing easily Head: Normocephalic, Atraumatic Eyes: Sclera normal, no conjunctival injection, PERRLA, EOMI ENT: Gross hearing intact, normal pharynx, mucous membranes dry Neck: supple, no adenopathy, No JVD, no bruit, Resp: Clear to auscultation b/l, no wheeze, rales, rhonchi. Normal insp/exp effort, no accessory muscle use CV: Regular rate, regular rhythm, no murmur, rub, gallop, or ectopy Abd: +BS x 4, soft, tender to light/deep palpation in epigastrum, nondistended Musculoskeletal: moves extremities active rom x 4, strength intact, good passenger train braker strength Extremities: No edema bilaterally Skin: warm, moist, no rash, negative turgor, cap refill < 2sec Neuro: Alert and oriented x 3, speech normal, good mood/affect, cran nerve 2-12 intact grossly : deferred Results & Data Vital Signs (Past 12 Hours) Vital Signs Temp Pulse Resp BP Pulse Ox 03/01/19 16:00 73 14 146/88 H 03/01/19 15:30 69 20 139/80 03/01/19 14:43 75 18 142/77 H 98 03/01/19 13:30 87 20 143/79 H 03/01/19 13:14 91 H 19 139/84 03/01/19 12:32 98 03/01/19 12:04 39.3 C H 104 H 18 144/86 H 98 Laboratory Results Short CBC 03/01/19 Range/Units 12:45 WBC 4.24 L (4.8-10.8) K/uL Hgb 13.4 L (14.0-18.0) g/dL Hct 37.8 L (42-52) % Plt Count 152 (130-400) K/uL BMP 03/01/19 12:45 Sodium 130 L Potassium 3.1 L Chloride 95 L Carbon Dioxide 26 BUN 12 Creatinine 0.92 Glucose 103 H Calcium 8.5 Cardiac Enzymes 03/01/19 Range/Units 12:45 Total Creatine Kinase 71 (39-308) U/L Troponin I < 0.015 (0-0.045) ng/ml Liver Function 03/01/19 Range/Units 12:45 Total Bilirubin 0.8 (0.2-1) mg/dl AST 17 (15-37) U/L ALT 22 (12-78) U/L Alkaline Phosphatase 52 (45-117) U/L Albumin 3.8 (3.4-5.0) gm/dl Urine 03/01/19 Range/Units 12:40 Urine Color Dark Yellow Urine Appearance Clear (Clear) Urine pH 5.0 (4.5-7.5) Ur Specific [place] 1.025 (1.000-1.030) Urine Protein Trace H (Negative) Urine Glucose (UA) Negative (Negative) Diagnostic Findings Chest CTA/Abdomen CT: IMPRESSION: 1. There is no evidence of pulmonary embolus in the main, lobar, or segmental pulmonary arteries. 2. There is no airspace consolidation or pleural effusion. 3. Findings are consistent with a nonspecific colitis, likely on an infectious or inflammatory basis. Clinical correlation will be required. 4. Hepatomegaly and mild steatosis. 5. Additional findings as above. Medications Administered Pantoprazole Sodium 40 mg/ (Dextrose) 100 mls @ 20 mls/hr IV Q5H ANYI Stop: 03/01/19 18:14 Last Admin: 03/01/19 13:58 Dose: 20 mls/hr Documented by: [id number] Ioversol (Optiray 320 125ml) 119 ml IV ONCE PRN PRN Reason: Interaction Checking Stop: 03/05/19 13:47 Last Admin: 03/01/19 13:49 Dose: 119 ml Documented by: [id number] Discontinued Medications Famotidine (Pepcid 20mg Iv Push) 20 mg in 5 mls @ 2.5 mls/min IV NOW STA Stop: 03/01/19 12:26 Last Admin: 03/01/19 13:05 Dose: 2.5 mls/min Documented by: [id number] Acetaminophen (Ofirmev) 1,000 mg in 100 mls @ 400 mls/hr IV NOW STA Stop: 03/01/19 12:39 Last Infusion: 03/01/19 13:23 Dose: 0 mls/hr Documented by: [id number] Admin: 03/01/19 13:05 Dose: 400 mls/hr Documented by: [id number] Sodium Chloride (Nss 1000ml) 1,000 mls @ 999 mls/hr IV .Q1H1M ONE Stop: 03/01/19 13:25 Last Infusion: 03/01/19 14:00 Dose: 0 mls/hr Documented by: [id number] Admin: 03/01/19 13:07 Dose: 999 mls/hr Documented by: [id number] Pantoprazole Sodium 80 mg/ (Dextrose) 120 mls @ 480 mls/hr IV NOW ONE Stop: 03/01/19 13:14 Last Infusion: 03/01/19 14:11 Dose: 0 mls/hr Documented by: [id number] Admin: 03/01/19 13:58 Dose: 480 mls/hr Documented by: [id number] Metronidazole (Flagyl) 500 mg in 100 mls @ 100 mls/hr IV NOW STA Stop: 03/01/19 16:11 Last Infusion: 03/01/19 15:59 Dose: 100 mls/hr Documented by: [id number] Infusion: 03/01/19 15:32 Dose: 0 mls/hr Documented by: [id number] Admin: 03/01/19 15:29 Dose: 100 mls/hr Documented by: [id number] Ciprofloxacin (Cipro) 400 mg in 200 mls @ 200 mls/hr IV NOW STA Stop: 03/01/19 16:11 Last Admin: 03/01/19 15:29 Dose: 200 mls/hr Documented by: [id number] Morphine Sulfate (Morphine Sulfate) 6 mg IV NOW STA Stop: 03/01/19 12:50 Last Admin: 03/01/19 13:06 Dose: Not Given Documented by: [id number] Morphine Sulfate (Morphine Sulfate) Confirm Administered Dose 4 mg .ROUTE .STK- MED ONE Stop: 03/01/19 13:03 Last Admin: 03/01/19 13:33 Dose: 4 mg Documented by: [id number] Morphine Sulfate (Morphine Sulfate) Confirm Administered Dose 2 mg .ROUTE .STK- MED ONE Stop: 03/01/19 13:03 Last Admin: 03/01/19 13:34 Dose: 2 mg Documented by: [id number] Ondansetron HCl (Zofran) 4 mg IV NOW STA Stop: 03/01/19 12:50 Last Admin: 03/01/19 13:06 Dose: 4 mg Documented by: [id number] ECG Rate (beats per minute): 97 Rhythm: normal sinus Code Status & VTE Plan Code Status Full Code VTE Prophylaxis Plan VTE Prophylaxis will be ordered: No Supervising Physician Co-Signing Physician Notes I have seen and examined the patient and have discussed the case with the provider above. I agree with the assessment and plan as stated. 53 yo M with UGIB. Denies heavy alcohol use, denies NSAIDs. Has h/o headaches but prefers Tylenol for this. h/o EGD in 2008 revealing evidence of gastritis. CSP 2017. Severe epigastric pain on exam with lipase in normal range. Not tolerating PO in two days. Black tarry stools even prior to Pepto use. He is hemodynamically stable and febrile with shaking chills. Heart and lung exam is WNL. DDx for symptoms includes but is not limited to PUD/gastritis in setting of Plavix related to UGIB and pancreatitis. For now, Na is low and will try to resuscitate without overcorrecting this. With normal lipase, suspect pancreatitis secondarily. Evidence of colitis is present on the scan, so continue with Cipro and Flagyl in the setting of fevers and chills. Normal LFTs. No indication for transfusion at this time. Cont trending H/H. Appreciate GI recommendations. DO Harjit
[2019-03-01] MEDS ORDERED: ONDANSETRON INJ 2 MG/ML 2 ML VIAL IV PRN (18:18)
[2019-03-01] MEDS ORDERED: ALUMINUM/MAGNESIUM SUSP 30 ML UDC PO PRN (18:18)
[2019-03-01] MEDS ORDERED: SODIUM CHLORIDE 0.9% 1000ML 1,000 ML IV SCH (18:18)
[2019-03-01] MEDS ORDERED: POLYETHYLENE (MIRALAX) 17 GM PACK PO PRN (18:18)
[2019-03-01] MEDS ORDERED: ACETAMINOPHEN 1,000 MG/100 ML VIAL IV PRN (18:18)
[2019-03-01] MEDS ORDERED: MoRPHine SULFATE 4 MG/ML 1 ML CARP\\VIAL IV PRN (18:18)
[2019-03-01] MEDS ORDERED: LORazepam 1 MG TAB PO PRN (18:18)
[2019-03-01] MEDS ORDERED: MAGNESIUM HYDROXIDE SUSP 30 ML UDC PO PRN (18:18)
[2019-03-01 19:00] LABS: Hematocrit (blood only) 39.7 % (42-52); Hemoglobin 13.8 g/dL (14.0-18.0)
[2019-03-01] MEDS: ACETAMINOPHEN 325 MG TAB PO PRN (19:22)
[2019-03-01] MEDS: PANTOprazole 40 MG in DEXTROSE 5% 100 ML IV SCH ×2 (19:22→23:40)
[2019-03-01] MEDS ORDERED: POTASSIUM CHLORIDE 20 MEQ TABCR PO ONE (21:00)
[2019-03-01] MEDS: SIMVASTATIN 40 MG TAB PO SCH (21:08)
[2019-03-01] MEDS: SERTRALINE HCL 50 MG TABLET PO SCH (21:08)
[2019-03-01] MEDS: metroNIDAZOLE 500 MG/100 ML BAG IV SCH (23:39)
[2019-03-02 00:54] LABS: Hematocrit (blood only) 33.5 % (42-52); Hemoglobin 11.5 g/dL (14.0-18.0)
[2019-03-02] MEDS: PANTOprazole 40 MG in DEXTROSE 5% 100 ML IV SCH ×2 (04:32→10:02)
[2019-03-02] MEDS: CIPROFLOXACIN 400 MG/200 ML BAG IV SCH ×2 (06:14→16:15)
[2019-03-02] MEDS: metroNIDAZOLE 500 MG/100 ML BAG IV SCH ×3 (07:46→23:30)
[2019-03-02 07:51] LABS: Hematocrit (blood only) 33.7 % (42-52); Hemoglobin 11.7 g/dL (14.0-18.0)
[2019-03-02 08:28] LABS: Albumin Globulin Ratio 0.9 (0.9-2); BUN Creatinine Ratio 9.3 (10-20); Bilirubin,Total 0.5 mg/dl (0.2-1); Calcium 7.9 mg/dl (8.5-10.1); Creatinine Clr Calc Pharmacy 110.1 ml/min; Est GFR (African American) 116.6; Est GFR (Non-African American) 100.6; Globulin 3.2 gm/dl (2.5-4.0); Potassium 3.2 mmol/L (3.5-5.1); Total Protein 6.2 gm/dl (6.4-8.2)
[2019-03-02] MEDS ORDERED: POTASSIUM CHLORIDE 20 MEQ TABCR PO STA (08:43)
--- NOTE | 2019-03-02 10:24 | Gastrointestinal Consultation ---
Date of Consultation March 02, 2019 History of Present Illness Attending Physician: Kyung Garcianer, DO 53 yo M with PMH sig for coronary disease in [facility] , also regular EtOH use, until evening, when had abrupt onset of nausea, abdominal pain, and loose dark stool. His nausea subsided, but he continued to have intermittent upper abdominal pain and malaise. He also reports 4-5 daily episodes of passage of loose dark BM; he had marked urgency with stool passage, and has been wearing a diaper. Denies NSAIDs, + plavix, + bismuth. [place]sc[place] [address] Julio for screening - no neoplasia, rec 10 year repeat. On admission, he was febrile and tachy but normotensive, noted to have abd tenderness. His labs were sig for hyponatremia, normal BUN, mild leukpenia/borderline thrombocytopenia, normal Hgb, normal bicarb/lactate. He had an abd CT which showed proximal colitis. He was placed on cipro/Flagyl and PPI gtt. At present, he has no pain or nausea. He has had two dark loose BM's this morning. He has poor appetite. He is afebrile overnight. He had mild hgb drop and resolution of hyponatremia. PMH, meds, as below. PE: He is comfortable and pleasant HEENT: oc clear CV: RRR Resp: CTA Abd: mild distention and tympany, decr BS; he is non tender, no r/g Extrem: no edema Labs reviewed Imaging personally reviewed - shows proximal colitis, no fluid in abd, + hepatomegaly A/P: Proximal colitis - Differential includes infectious or ischemic colitis. Agree with empiric abx, clears for today and adv diet as cindy, stool studies, doppler uls of abd. OK to resume ASA, Plavix; please hold fish oil. - No evidence of UGIB - his symptoms seem to be entirely explained by colitis. D/c PPI gtt, no need for EGD. Will follow with you. Allergies Allergy/AdvReac Type Severity Reaction Status Date / Time Penicillins Allergy Intermediate RASH Verified 03/01/19 13:33 Home Medications Home Medications Medication Instructions Recorded Confirmed Type clopidogrel 75 mg PO DAILY 03/01/19 03/01/19 History multivitamin 1 tab PO DAILY 03/01/19 03/01/19 History omega 6-jkl-vmb-fish oil [Fish Oil] 2 cap PO HS 03/01/19 03/01/19 History pantoprazole 40 mg PO BID 03/01/19 03/01/19 History sertraline 50 mg PO HS 03/01/19 03/01/19 History simvastatin 40 mg PO HS 03/01/19 03/01/19 History Patient History Medical History Coronary artery disease (Chronic) Bicuspid aortic valve (Chronic) Depression (Chronic) Migraine with aura (Chronic) Surgical History S/P coronary artery stent placement (Chronic) S/P tonsillectomy (Chronic) S/P inguinal hernia repair (Chronic) H/O vasectomy (Chronic) Family History Father Arrhythmia Heart disease Social History Preferred Language: French Communication Ability: Effective Counter Caser Required: No Beliefs That Will Affect Care: None marital status: Current Living Situation: Spouse current occupational status: employed Other Information That Helps Us Care for You: Yes Feels Safe at Home: Yes Safety Concerns: Feels Safe At This Time Smoking Status: Former smoker Do You Dip or Chew Tobacco: No ; Second Hand Exposure: No ; Tobacco Cessation Education Requested by Patient: No Hx Alcohol Use: Yes Alcohol type: beer Alcohol Intake Frequency Comment: 1-6 light beers daily Hx Substance Use: No Results & Data Vital Signs (Past 12 Hours) Vital Signs Temp Pulse Pulse Pulse Resp BP Pulse Ox 03/02/19 07:08 36.9 C 71 18 114/75 98 03/02/19 05:08 36.8 C 03/02/19 03:46 38.4 C H 82 17 142/82 H 96 03/02/19 00:55 85 03/01/19 23:00 37.2 C 78 17 109/68 97
--- NOTE | 2019-03-02 12:23 | Ultrasound Report ---
US duplex mesenteric CLINICAL HISTORY: 53 years-old Male presenting with colitis, abdominal pain, rule out mesenteric vasc ular stenosis. TECHNIQUE: Real-time grayscale and color and spectral Doppler ultrasound imaging of the aorta and mes enteric vessels was performed. COMPARISON: CT of the abdomen and pelvis from 03/01/2019. FINDINGS: Aorta: Patent. Normal waveform. Peak systolic velocity 97 cm/s. Celiac axis: Patent. Normal waveforms. Peak systolic velocity 248 cm/s. Hepatic artery: Patent. Normal waveforms. Peak systolic velocity 148 cm/s. Splenic artery: Not evaluated. Superior mesenteric artery: Patent. Normal waveforms. Peak systolic velocity 187 cm/s proximally, 203 cm/s in the midportion, and 118 cm/s distally. Inferior mesenteric artery: Not evaluated. Reference ranges: Celiac artery: PSV ? 240 cm/s suggests stenosis ? 50%; PSV ? 320 cm/s suggests stenosis ? 70%. Superior mesenteric artery: PSV ? 295 cm/s suggests stenosis ? 50%; PSV ? 400 cm/s suggests stenosis ? 70%. IMPRESSION: 1. 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 2. No significant stenosis of the superior mesenteric artery. 3. Elevated hepatic artery velocity, which is nonspecific. Correlate with liver function tests. This could potentially be reactive to the ongoing colitis. Electronically signed by: Tyrel Nelson M.D. 03/02/2019 12:21 PM
[2019-03-02 13:54] LABS: Hematocrit (blood only) 34.2 % (42-52); Hemoglobin 11.7 g/dL (14.0-18.0)
[2019-03-02] MEDS: ACETAMINOPHEN 325 MG TAB PO PRN (14:36)
--- NOTE | 2019-03-02 17:32 | Hospitalist Progress Note ---
Date of Service March 02, 2019 Assessment & Plan (1) Colitis: LGIB per GI. Bowel movements are normalizing. Plavix restarted. No blood transfusion needed. Trending CBC daily. Protonix drip stopped. Continuing Metronidazole and Cipro. Infectious vs ischemic colitis. 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 SMA was clear. Likely infectious etiology. Stool studies pending. (2) Hypokalemia: Replace and recheck in am. (3) Coronary artery disease: stable, Plavix restarted. Should be on ASA, this was ordered, also. Cont simvastatin. (4) Depression: zoloft. (5) Alcohol use: doesn't appear to be a heavy drinker. (6) Acute blood loss anemia: No indications for blood transfusion at this time. Cont to monitor. (7) DVT prophylaxis: holding in setting of hematochezia Full Code Dispo-to home when medically stable. Kyung Lombardi DO [facility] Hospitalist Subjective Reports feeling improved Not excited about his clear liquid tray but denies nausea or vomiting Denies fevers or chills today. Denies chest pain or SOB Doing well overall. US study performed. Results discussed with him. Review of Systems Review of Systems: All systems reviewed & are unremarkable except as noted in HPI & below Physical Exam Physical Exam: CONSTITUTIONAL: WNWD, vitals as above, generally well- appearing EYES: normal conjunctivae, no scleral icterus ENT: MMM RESPIRATORY: clear to auscultation bilaterally, no crackles, rales or wheezes, normal respiratory effort CARDIOVASCULAR: regular rate and rhythm, S1 and 2 heard without murmurs, gallops or rubs, no JVD, no peripheral edema GASTROINTESTINAL: soft, TTP in RUQ/LUQ/epigastric area, nondistended MUSCULOSKELETAL: strength 5/5 throughout, head is normocephalic and atraumatic SKIN: warm and dry NEUROLOGIC: CN 2-12 grossly intact, no gross focal deficits. PSYCHIATRIC: alert cooperative and oriented to person, place and time. Results & Data Vital Signs (Past 12 Hours) Vital Signs Temp Pulse Pulse Resp BP Pulse Ox Pulse Ox 03/02/19 17:22 95 03/02/19 17:20 83 03/02/19 15:19 37.9 C H 82 18 146/79 H 98 08/11/19 11:20 66 03/02/19 10:59 36.9 C 73 18 128/82 95 03/02/19 07:08 36.9 C 71 18 114/75 98 Laboratory Results Short CBC 03/01/19 03/02/19 03/02/19 Range/Units 18:50 00:42 07:25 Hgb 13.8 L 11.5 L 11.7 L (14.0-18.0) g/dL Hct 39.7 L 33.5 L 33.7 L (42-52) % 03/02/19 Range/Units 13:47 Hgb 11.7 L (14.0-18.0) g/dL Hct 34.2 L (42-52) % BMP 03/02/19 07:25 Sodium 138 D Potassium 3.2 L Chloride 105 Carbon Dioxide 26 BUN 7 D Creatinine 0.80 Glucose 110 H Calcium 7.9 L Liver Function 03/02/19 Range/Units 07:25 Total Bilirubin 0.5 (0.2-1) mg/dl AST 14 L (15-37) U/L ALT 18 (12-78) U/L Alkaline Phosphatase 44 L (45-117) U/L Albumin 3.0 L (3.4-5.0) gm/dl Diagnostic Findings US duplex mesenteric CLINICAL HISTORY: 53 years-old Male presenting with colitis, abdominal pain, rule out mesenteric vascular stenosis. TECHNIQUE: Real-time grayscale and color and spectral Doppler ultrasound imaging of the aorta and mesenteric vessels was performed. COMPARISON: CT of the abdomen and pelvis from 03/01/2019. FINDINGS: Aorta: Patent. Normal waveform. Peak systolic velocity 97 cm/s. Celiac axis: Patent. Normal waveforms. Peak systolic velocity 248 cm/s. Hepatic artery: Patent. Normal waveforms. Peak systolic velocity 148 cm/s. Splenic artery: Not evaluated. Superior mesenteric artery: Patent. Normal waveforms. Peak systolic velocity 187 cm/s proximally, 203 cm/s in the midportion, and 118 cm/s distally. Inferior mesenteric artery: Not evaluated. Reference ranges: Celiac artery: PSV ? 240 cm/s suggests stenosis ? 50%; PSV ? 320 cm/s suggests stenosis ? 70%. Superior mesenteric artery: PSV ? 295 cm/s suggests stenosis ? 50%; PSV ? 400 cm/s suggests stenosis ? 70%. IMPRESSION: 1. 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 2. No significant stenosis of the superior mesenteric artery. 3. Elevated hepatic artery velocity, which is nonspecific. Correlate with liver function tests. This could potentially be reactive to the ongoing colitis. Medications Administered Current Inpatient Medications Acetaminophen (Tylenol) 650 mg PO Q4H PRN PRN Reason: Pain or Fever Stop: 03/31/19 18:17 Last Admin: 03/02/19 14:36 Dose: 650 mg Documented by: Al Hydrox/Mg Hydrox/Simethicone (Maalox) 15 ml PO Q4H PRN PRN Reason: Dyspepsia Stop: 03/31/19 18:17 Calcium Carbonate (Tums) 1,000 mg PO Q6H PRN PRN Reason: Indigestion/stomach pain Stop: 04/01/19 17:32 Clopidogrel Bisulfate (Plavix) 75 mg PO DAILY ANYI Stop: 04/02/19 08:59 Ciprofloxacin (Cipro) 400 mg in 200 mls @ 100 mls/hr IV Q12H ANYI; Protocol Stop: 03/11/19 17:59 Last Admin: 03/02/19 16:15 Dose: 100 mls/hr Documented by: Metronidazole (Flagyl) 500 mg in 100 mls @ 100 mls/hr IV Q8H ANYI; Protocol Stop: 03/12/19 00:00 Last Admin: 03/02/19 16:08 Dose: 100 mls/hr Documented by: Acetaminophen (Ofirmev) 1,000 mg in 100 mls @ 400 mls/hr IV Q8H PRN PRN Reason: Fever; mild pain Stop: 03/31/19 18:17 Last Infusion: 03/02/19 04:32 Dose: Infused Documented by: Sodium Chloride (Nss) 250 mls @ 15 mls/hr IV .[id number] PRN PRN Reason: For Transfusion Stop: 03/31/19 18:17 Magnesium Hydroxide (Milk Of Magnesia) 30 ml PO Q12H PRN PRN Reason: Constipation Stop: 03/31/19 18:17 Morphine Sulfate (Morphine Sulfate) 4 mg IV Q6H PRN PRN Reason: Severe Pain Stop: 03/15/19 18:17 Ondansetron HCl (Zofran) 4 mg IV Q6H PRN PRN Reason: Nausea Stop: 03/31/19 18:17 Polyethylene Glycol (Miralax Powder Packet) 17 gm PO DAILY PRN PRN Reason: Constipation Stop: 03/31/19 18:17 Sertraline HCl (Zoloft) 50 mg PO [facility] Stop: 03/31/19 20:59 Last Admin: 03/01/19 21:08 Dose: 50 mg Documented by: Simvastatin (Zocor) 40 mg PO [facility] Stop: 03/31/19 20:59 Last Admin: 03/01/19 21:08 Dose: 40 mg Documented by:
[2019-03-02] MEDS ORDERED: CALCIUM CARBONATE 500 MG CHEWABLE TAB PO PRN (17:33)
[2019-03-02] MEDS ORDERED: ZOLPIDEM TARTRATE 5 MG TAB PO PRN (19:41)
[2019-03-02] MEDS: SIMVASTATIN 40 MG TAB PO SCH (20:37)
[2019-03-02] MEDS: SERTRALINE HCL 50 MG TABLET PO SCH (20:38)
[2019-03-02] MEDS ORDERED: PANTOprazole 40 MG TAB PO SCH (21:00)
[2019-03-03] MEDS: CIPROFLOXACIN 400 MG/200 ML BAG IV SCH ×2 (05:39→18:11)
[2019-03-03 06:53] LABS: Hematocrit (blood only) 34.8 % (42-52); Hemoglobin 12.2 g/dL (14.0-18.0); Mean Corpuscular Hgb Conc 35.1 g/dL (32-36); Mean Corpuscular Volume 89.2 fL (80-100); Mean Platelet Volume 10.3 fL (7.4-10.4); Platelet Count 149 K/uL (130-400); RDW Coefficient of Variation 13.5 % (11.5-14.5); RDW Standard Deviation 43.9 fL (36.4-46.3)
[2019-03-03 07:19] LABS: BUN Creatinine Ratio 7.1 (10-20); Calcium 8.8 mg/dl (8.5-10.1); Creatinine Clr Calc Pharmacy 131.3 ml/min; Est GFR (African American) 125.4; Est GFR (Non-African American) 108.2; Potassium 3.2 mmol/L (3.5-5.1)
[2019-03-03] MEDS ORDERED: POTASSIUM CHLORIDE 10 MEQ TABCR PO STA (08:11)
--- NOTE | 2019-03-03 08:40 | Gastroenterology Progress Note ---
Date of Service March 03, 2019 Assessment & Plan (1) Epigastric abdominal pain: Present on Admission?: Yes (2) Colitis: Likely viral vs. bacterial or ischemic colitis. 1. Advance diet 2. Stools for culture and C-diff. 3. OP colonoscopy 6-8 wks 4. Complete 10 days of Cipro/metronidazole. 5. Consider OP IR consult for Celiac Stenosis - ? amenable to stenting. Will defer ordering OP referral to PCP - can discuss with pt at hospital f/u visit. Present on Admission?: Yes Supervising Physician Co-Signing Physician Notes I have seen and examined the patient and discussed the management with FRANK Petersen. 53 yo male admitted Sunday with nausea/abdominal pain/loose dark stools, on outpatient blood thinners. History of cadz, bicuspid aortic valve and aspirin + plavix. PE - well nourished male in nad, abd exam- soft nt nd +bs, ext: no theresa Labs reviewed: hgb stable, no bun increased Imaging with CT scan of abdomen showing colitis of ascending colon to descending colon Fecal leuks negative, c diff pending, additional stool cultures pending Blood cultures negative to date Being treated for infectious colitis- with cipro/flagyl. ? component of ischemic colitis. Should complete a course of cipro/flagyl for 10 days if no other etiology found for his imaging and symptoms. Await c diff workup - treat c diff if + with vancomycin. Likely outpatient colonoscopy in 8-12 weeks to rule out ibd. Outpatient IR consult given mesenteric doppler showing ? 50% stenosis of proximal celiac artery and contribution of ischemic colitis to his presentation. Subjective Mr Murphy Perkins is a 53 yr old male with a hx of CAD Presented on 03/01 with report of black loose stools since 02/27. Approx 6 BMs in the last 24 hrs. No abdominal pain since last night. Hungry, requesting to eat. On arrival CT with IV contrast with wall thickening from the cecum to the proximal descending colon. No leukocytosis or fever. K 3.1->3.2. Doppler US with 50% or more stenosis of the origin of the Celiac Artery. Review of Systems Review of Systems: ROS: Gen: Denies weakness, fevers, weight loss Eyes: No eye redness, or pain, no recent vision changes Resp: No SOB, no cough Cardio: No palpitations/irregular beats, no chest pain GI: No abdominal pain, no nausea/vomiting : Denies pain on urination Skin: No jaundice, itching or new rashes Physical Exam Constitutional: WD/WN, vitals as above well developed and + well hydrated; no acute distress and not ill appearing Eyes: PERRL, conjunctivae normal, anicteric sclerae ENMT: external ear and nose normal, oropharynx normal Neck: trachea midline, no thyromegaly Respiratory: normal respiratory effort, lungs clear to auscultation Cardiovascular: RRR, no murmur, no edema Gastrointestinal (Abdomen): normal bowel sounds, soft, nontender, no hepatosplenomegaly Musculoskeletal: no cyanosis or clubbing, extremities motor strength 5/5 Skin: no rashes, warm and dry Neurologic: PERRL, EOMI, accommodation nl, no face palsy, no dysarthria Psychiatric: A+Ox3, euthymic affect Lymphatic: no cervical or axillary lymphadenopathy Results & Data Vital Signs (Past 12 Hours) Vital Signs Temp Pulse Resp BP Pulse Ox 03/03/19 07:40 36.8 C 65 20 129/83 100 03/03/19 03:20 37.0 C 70 17 116/71 97 03/02/19 23:13 37.0 C 83 18 133/[address] abd/pelvis with IV contrast 03/01: 1. There is no evidence of pulmonary embolus in the main, lobar, or segmental pulmonary arteries. 2. There is no airspace consolidation or pleural effusion. 3. Findings are consistent with a nonspecific colitis, likely on an infectious or inflammatory basis. Clinical correlation will be required. 4. Hepatomegaly and mild steatosis. 5. Additional findings as above. 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
[2019-03-03] MEDS: metroNIDAZOLE 500 MG/100 ML BAG IV SCH ×3 (08:58→23:38)
[2019-03-03] MEDS: CLOPIDOGREL BISULFATE 75 MG TAB PO SCH (08:59)
[2019-03-03] MEDS: ASPIRIN 81 MG ECTAB PO SCH (08:59)
[2019-03-03] MEDS: ACETAMINOPHEN 325 MG TAB PO PRN (10:30)
--- NOTE | 2019-03-03 17:49 | Hospitalist Progress Note ---
Date of Service March 03, 2019 Assessment & Plan (1) Colitis: Melena Likely Viral colitis Vs Ischemic Colitis Hb stable No acute bleeding issues Diarrhea improving Plan to complete 10-day course of Cipro, metronidazole Needs outpatient IR consult for celiac stenosis for possible stenting Appreciate GI Input Continue Aspirin, Plavix--May need to hold if recurrence of bleeding Stool culture:pending (2) Hypokalemia: Replace and monitor potassium (3) Coronary artery disease: Stable Continue Aspirin, plavix, simvastatin (4) Depression: Continue zoloft (5) Alcohol use: No signs of withdrawal (6) Acute blood loss anemia: Hb stable monitor cbc (7) DVT prophylaxis: SCDs for now Code Status Full Code Disposition Expect to discharge home when medically stable Subjective Patient is seen and examined at bedside Had semi-formed bowel movement today Denies any abdominal pain today Also denies any melena, blood in stools Tolerating diet Discussed with GI today Review of Systems Review of Systems: All systems reviewed & are unremarkable except as noted in HPI & below Physical Exam Physical Exam: Physical Exam: Vitals signs as noted above General Appearance:Moderately built and nourished, no apparent distress Head: normocephalic, Atraumatic Eyes: normal inspection, EOMI Neck: supple, Trachea midline Respiratory/Chest: Normal breath sounds, CTA Cardiovascular: S1, S2, No murmur Abdomen/GI:Soft, Non tender, Bowel sounds present Extremities/Musculoskelatal:normal inspection, no edema Neurologic/Psych:AAOX3, grossly no focal neurological deficits Skin: normal color, warm Results & Data Vital Signs (Past 12 Hours) Vital Signs Temp Pulse Resp BP Pulse Ox 03/03/19 15:15 36.8 C 65 18 108/70 99 03/03/19 11:18 37.1 C 71 16 114/74 99 03/03/19 07:40 36.8 C 65 20 129/83 100 Laboratory Results Short CBC 03/03/19 Range/Units 06:20 WBC 3.80 L (4.8-10.8) K/uL Hgb 12.2 L (14.0-18.0) g/dL Hct 34.8 L (42-52) % Plt Count 149 (130-400) K/uL BMP 03/03/19 06:20 Sodium 139 Potassium 3.2 L Chloride 105 Carbon Dioxide 28 BUN 5 L Creatinine 0.67 Glucose 103 H Calcium 8.8
[2019-03-03] MEDS: SERTRALINE HCL 50 MG TABLET PO SCH (20:28)
[2019-03-03] MEDS: SIMVASTATIN 40 MG TAB PO SCH (20:28)
[2019-03-03] MEDS: PANTOprazole 40 MG TAB PO SCH (20:28)
[2019-03-03] MEDS ORDERED: BUTALBITAL/ACETAMIN/CAFFEINE TAB PO STA (23:22)
[2019-03-04] MEDS: CIPROFLOXACIN 400 MG/200 ML BAG IV SCH (06:37)
[2019-03-04 07:13] VITALS: BP 128/75; TEMP 98.1; O2SAT 97
[2019-03-04 07:43] LABS: Hematocrit (blood only) 34.6 % (42-52); Hemoglobin 12.5 g/dL (14.0-18.0); Mean Corpuscular Hgb Conc 36.1 g/dL (32-36); Mean Corpuscular Volume 87.8 fL (80-100); Mean Platelet Volume 9.4 fL (7.4-10.4); Platelet Count 203 K/uL (130-400); RDW Coefficient of Variation 13.5 % (11.5-14.5); RDW Standard Deviation 43.5 fL (36.4-46.3); Red Blood Count 3.94 M/uL (4.7-6.1); White Blood Count 5.33 K/uL (4.8-10.8)
[2019-03-04 08:26] LABS: BUN Creatinine Ratio 6.7 (10-20); Creatinine Clr Calc Pharmacy 120.9 ml/min; Est GFR (African American) 125.3; Est GFR (Non-African American) 108.1; Magnesium 2.3 mg/dl (1.8-2.4); Potassium 3.3 mmol/L (3.5-5.1)
[2019-03-04] MEDS: ASPIRIN 81 MG ECTAB PO SCH (08:43)
[2019-03-04] MEDS: CLOPIDOGREL BISULFATE 75 MG TAB PO SCH (08:43)
[2019-03-04] MEDS: PANTOprazole 40 MG TAB PO SCH (08:43)
[2019-03-04] MEDS: metroNIDAZOLE 500 MG/100 ML BAG IV SCH (09:09)
[2019-03-04] MEDS ORDERED: POTASSIUM CHLORIDE 10 MEQ TABCR PO ONE (09:15)
--- NOTE | 2019-03-04 12:04 | Hospitalist Progress Note ---
Date of Service March 04, 2019 Assessment & Plan (1) Colitis: Melena Likely Salmonella colitis Vs Ischemic Colitis Hb stable No acute bleeding issues Diarrhea continues to improve Plan to complete 10-day course of Cipro, metronidazole Needs outpatient IR consult for celiac stenosis for possible stenting Appreciate GI Input Continue Aspirin, Plavix--May need to hold if recurrence of bleeding Stool culture:Salmonella (2) Hypokalemia: Replace and monitor potassium (3) Coronary artery disease: Stable Continue Aspirin, Plavix, simvastatin Patient admits to taking aspirin intermittently in the past Advised medication compliance (4) Depression: Continue zoloft (5) Alcohol use: No signs of withdrawal (6) Acute blood loss anemia: Hb stable monitor cbc (7) DVT prophylaxis: SCDs for now Code Status Full Code Disposition Plan to discharge home today Subjective Patient is seen and examined at bedside Doing much better today Diarrhea continues to improve No new complaints Denies any chest pain, SOB, dizziness, abd pain, melena, blood in stools Tolerated regular diet Discussed with GI Review of Systems Review of Systems: All systems reviewed & are unremarkable except as noted in HPI & below Physical Exam Physical Exam: Physical Exam: Vitals signs as noted above General Appearance:Moderately built and nourished, no apparent distress Head: normocephalic, Atraumatic Eyes: normal inspection, EOMI Neck: supple, Trachea midline Respiratory/Chest: Normal breath sounds, CTA Cardiovascular: S1, S2, No murmur Abdomen/GI:Soft, Non tender, Bowel sounds present Extremities/Musculoskelatal:normal inspection, no edema Neurologic/Psych:AAOX3, grossly no focal neurological deficits Skin: normal color, warm Results & Data Vital Signs (Past 12 Hours) Vital Signs Temp Pulse Pulse Resp BP Pulse Ox 03/04/19 07:22 75 03/04/19 07:12 36.7 C 64 16 128/75 97 03/04/19 04:46 36.6 C 62 18 123/71 96 03/04/19 00:13 71 Laboratory Results Short CBC 03/04/19 Range/Units 07:26 WBC 5.33 (4.8-10.8) K/uL Hgb 12.5 L (14.0-18.0) g/dL Hct 34.6 L (42-52) % Plt Count 203 (130-400) K/uL BMP 03/04/19 07:26 Sodium 140 Potassium 3.3 L Chloride 106 Carbon Dioxide 27 BUN 4 L Creatinine 0.66 Glucose 103 H Calcium 9.0
--- NOTE | 2019-03-04 12:29 | Discharge Summary ---
Date of Service March 04, 2019 Admission HPI Per Admitting Provider This is a 53-year-old male who has a significant past medical history of CAD with history of VICTOR HUGO to LAD in 2008, bicuspid aortic valve, GERD who presents to [facility] ED secondary to abdominal pain, dark/tarry stool x2 days. at bedside. Patient states on evening at approximately 8 PM he ate a tomato/quarles sandwich and abruptly at 9 PM developed epigastric abdominal pain, nausea and emesis x3. Abdominal pain persisted, would come and go/intermittent, located in epigastrium, nonradiating, made worse with food, associated with dark/tarry diarrhea. Pain would be sharp and stabbing at times and also described as ache. Currently 08/01 but TRANSPORTATION AID 12/30. Tried Pepto-Bismol x2 without relief. Dark/tarry BM was present prior to Pepto-Bismol. He admits to feeling chilled but denies sweats. Admits to being lightheaded with prolonged standing and movement, ringing in ears. Denies ever having symptoms like this in the past. No known sick contacts. No recent travel. Denies any significant NSAID use. Drinks approximately 1-4 light beers daily and up to 6 light beers daily on weekends. Denies syncope, chest pain, shortness breath, LAMA, palpitations, hemoptysis, dysuria, increased urgency or frequency with urination. Significantly decreased appetite. No known weight loss. Admission Exam Per Admitting Provider Gen: WD/WN, M, NAD, sitting up in bed, pleasant, conversing easily Head: Normocephalic, Atraumatic Eyes: Sclera normal, no conjunctival injection, PERRLA, EOMI ENT: Gross hearing intact, normal pharynx, mucous membranes dry Neck: supple, no adenopathy, No JVD, no bruit, Resp: Clear to auscultation b/l, no wheeze, rales, rhonchi. Normal insp/exp effort, no accessory muscle use CV: Regular rate, regular rhythm, no murmur, rub, gallop, or ectopy Abd: +BS x 4, soft, tender to light/deep palpation in epigastrum, nondistended Musculoskeletal: moves extremities active rom x 4, strength intact, good seat nailer strength Extremities: No edema bilaterally Skin: warm, moist, no rash, negative turgor, cap refill < 2sec Neuro: Alert and oriented x 3, speech normal, good mood/affect, cran nerve 2-12 intact grossly : deferred Principal Diagnosis Discharge Information Discharge Diagnosis Salmonella Colitis Hypokalemia Celiac Stenosis Discharge Goals Decrease discomfort,Improve disease control, Improve function Discharge Activity Limitations Resume your previous activity Discharge Data Allergies Allergy/AdvReac Type Severity Reaction Status Date / Time Penicillins Allergy Intermediate RASH Verified 03/01/19 13:33 Consultations 03/01/19 15:12 ED Decision to Admit Stat 03/01/19 18:18 Consult Gastroenterology Routine Procedures Performed CT ABD: 1. There is no evidence of pulmonary embolus in the main, lobar, or segmental pulmonary arteries. 2. There is no airspace consolidation or pleural effusion. 3. Findings are consistent with a nonspecific colitis, likely on an infectious or inflammatory basis. Clinical correlation will be required. 4. Hepatomegaly and mild steatosis. 5. Additional findings as above. Chest CTA: 1. There is no evidence of pulmonary embolus in the main, lobar, or segmental pulmonary arteries. 2. There is no airspace consolidation or pleural effusion. 3. Findings are consistent with a nonspecific colitis, likely on an infectious or inflammatory basis. Clinical correlation will be required. 4. Hepatomegaly and mild steatosis. 5. Additional findings as above. Mesenteric USD: 1. 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 2. No significant stenosis of the superior mesenteric artery. 3. Elevated hepatic artery velocity, which is nonspecific. Correlate with liver function tests. This could potentially be reactive to the ongoing colitis. Ordered Studies 03/01/19 12:44 CT abd pelvis IV con only Stat 03/01/19 13:45 CT angio chest PE protocol Stat 03/02/19 10:35 US duplex mesenteric Routine Hospital Course (1) Colitis: Melena Likely Salmonella colitis Vs Ischemic Colitis Hb stable No acute bleeding issues Diarrhea continues to improve Plan to complete 10-day course of Cipro, metronidazole Needs outpatient IR consult for celiac stenosis for possible stenting Appreciate GI Input Continue Aspirin, Plavix--May need to hold if recurrence of bleeding Stool culture:Salmonella (2) Hypokalemia: Replace and monitor potassium (3) Coronary artery disease: Stable Continue Aspirin, Plavix, simvastatin Patient admits to taking aspirin intermittently in the past Advised medication compliance (4) Depression: Continue zoloft (5) Alcohol use: No signs of withdrawal (6) Acute blood loss anemia: Hb stable monitor cbc (7) DVT prophylaxis: SCDs for now Code Status Full Code Disposition Plan to discharge home today Total Time Total Time Spent Total Time Spent (In Minutes): 40 minutes Total Time Includes: Examination of the Patient, Discharge Planning, Medication Reconciliation, Communication With Other Providers and Other Discharge Plan Discharge Items Patient Disposition: Home - Self-Care Reason For Visit: GIB, COLITIS Discharge Diagnosis: Salmonella Colitis Hypokalemia Celiac Stenosis Discharge Goals: Decrease discomfort, Improve disease control and Improve function Activity: Resume your previous activity Exercise/Sports: Gradually increase as tolerated Non-emergency contact: Primary Care Provider, Specialist and Employer Relations Representative Call non-emergency contact if: you have any medication questions, your symptoms worsen, your pain is not controlled, your pain is worsening, your pain is unusual for you, your pain is concerning for you and you have a fever Follow-up/Referrals: Shant Ojeda MD [Primary Care Provider] - Diet: Heart Healthy Addtl Provider Instructions: Follow-up with your primary care physician Sharonda Keen on March 06, 2019 at 9 AM Follow-up with your lance crewmember/mlrs sergeant Dr. Delvalle/Marcelina for colonoscopy as outpatient Follow-up with your vascular surgery/interventional radiology for further evaluation and management of celiac stenosis Complete antibiotic course as prescribed Seek immediate medical attention if your symptoms reoccur or worsen Prescriptions: New aspirin [Ecotrin Low Strength] 81 mg Tablet,Delayed Release (Dr/Ec) 81 mg PO QAM 30 Days Qty: 30 RF: 0 ciprofloxacin HCl 500 mg tablet 500 mg PO BID Qty: 14 RF: 0 metronidazole [Flagyl] 500 mg tablet 500 mg PO Q8H 7 Days Qty: 21 RF: 0 Continued multivitamin Tablet 1 tab PO DAILY RF: 0 clopidogrel 75 mg tablet 75 mg PO DAILY RF: 0 simvastatin 40 mg tablet 40 mg PO HS RF: 0 pantoprazole 40 mg tablet,delayed release (DR/EC) 40 mg PO BID RF: 0 sertraline 50 mg tablet 50 mg PO HS RF: 0 omega [id number] oil [Fish Oil] 1,000 mg (120 mg-180 mg) Capsule 2 cap PO HS RF: 0 Stand-Alone Forms: Work/School Release (ED), [facility] Discharge Orders: Discharge Order (Routine); Ordered 03/04/19 Ordered By: Olvin Linton Admission Data Admit Date/Time: 03/01/19 17:53 Attending Provider: Olvin Linton Admit Provider: Kyung Lombardi Primary Care Provider: Shant Ojeda Other Providers: Kyung Lombardi ; Ryan Hewitt Service: Telemetry Medical Other Interventions: Discharge Summary Assessment (RN) Last Done: 03/04/19 12:51 Pending Studies at Discharge: No DC Date/Time DO NOT enter until pt leaves facility: 03/04/19 15:14
[2019-03-04 12:53] VITALS: PULSE 82
== END 2019-03-04 15:14 | disposition home or self-care (01) | DRG 372 ==
LOC: ED 11:58 → 2S 17:16 → SUATTDRO 17:53 → 2S 17:53 → 2N 03-03 15:46